=== PATIENT | female | born 2000 | race Caucasian/White ===

== ENCOUNTER 2020-08-28 12:22 | Emergency (ER) | payer OTHER, SELFPAY ==
[2020-08-28 12:27] VITALS: BP 94/61; PULSE 107; RESP 24; TEMP 36.9; O2SAT 98; BMI 18.8
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
--- NOTE | 2020-08-28 12:44 | PC.NURSE ---
Shortly after pt was triaged she was brought back to the ED temporarily while ED bed placement was being established. As this RN returned to the waiting room pt was yelling profanities at the triage nurse, stating that she needs to self-administer her own nebulizer treatment. This RN intervened to inform the pt that we have a room ready for her to transfer to. This was approximately one minute after her triage. As the pt attempted to initiate her own treatment, this RN informed her that she cold not do so in the waiting room due the aerosolizing of the nebulizer and the uncertainty of whether she had covis or not. Pt then walked back to the room assigned to her, continuing to yell out profanities in full clear sentences in no respiratory distress. Upon entering her assigned room pt set her nebulizer up and self administered treatment.
--- NOTE | 2020-08-28 12:48 | XR_ITS ---
EXAMINATION: XR CHEST CLINICAL INFORMATION: Asthma exacerbation. COMPARISON: Chest 10/02/2019 TECHNIQUE: Frontal view of the chest was obtained. FINDINGS: The lungs are well-expanded bilaterally with increase interstitial markings. No gross bony abnormality. XR/XR chest 1V IMPRESSION: No acute process. Increased bilateral interstitial markings in both lungs without acute consolidation.
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
[2020-08-28] MEDS: Albuterol Sulfate (0.083%) 2.5 MG/3 ML VIAL.NEB 5 MG INHALE (13:09)
[2020-08-28 13:10] VITALS: PULSE 84; O2SAT 98
[2020-08-28] MEDS: predniSONE 20 MG TABLET 60 MG PO (13:13)
--- NOTE | 2020-08-28 13:19 | PC.NURSE ---
PT IN ROOM UPDRAFT TREATMENT IN PROGRESS, MEDICATED CHARTED
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
[2020-08-28 14:16] VITALS: BP 116/51; PULSE 101; RESP 16; O2SAT 98
[2020-08-28 14:23] LABS: Influenza A PCR NEGATIVE (Negative); Influenza B PCR NEGATIVE (Negative); Resp Syncy Virus RNA Qual PCR NEGATIVE (Negative); SARS COV2 PCR INHOUSE NEGATIVE (Negative)
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
--- NOTE | 2020-08-28 15:38 | PC.NURSE ---
CARE TEAM PROVIDED PT WITH [facility]. SHE IS ON THE PHONE WITH SOMEONE WHO IS COMING TO GET THIS PT FOR DISCHARGE
== END 2020-08-28 15:55 | disposition home or self-care (01) ==
PROVIDERS: Physician Assistant; Emergency Provider Emergency Medicine
DX: J45.901 Unspecified asthma with (acute) exacerbation (principal); Z20.828 Contact with and (suspected) exposure to other viral communicable diseases
CPT/HCPCS: 0241U; 36415; 71045; 94640; 99283; 99284

== ENCOUNTER 2020-11-18 10:34 | Emergency (ER) | payer OTHER, SELFPAY ==
[2020-11-18 10:46] VITALS: BP 112/49; PULSE 96; RESP 14; TEMP 36.8; O2SAT 84; O2SAT 97; BMI 22.2
--- NOTE | 2020-11-18 11:06 | ECG_ITS ---
Test Reason : SOB Blood Pressure : / mmHG Vent. Rate : 096 BPM Atrial Rate : 096 BPM P-R Int : 126 ms QRS Dur : 082 ms QT Int : 352 ms P-R-T Axes : 077 032 038 degrees QTc Int : 444 ms Normal sinus rhythm Normal ECG When compared with ECG of 29-JUN-2019 09:32, No significant change was found Referred By: Brooklynn Garcia Electronically Signed By:ESTHER ZAMUDIO
--- NOTE | 2020-11-18 11:15 | PC.NURSE ---
PATIENT REFUSING BLOOD WORK, EKG AND ALL TREATMENT. SHE SAID SHE WANTS NOTHING DONE UNLESS HER BOYFRIEND IS IN THE ROOM. WE EXPLAINED TO HER THAT PER HOSPITAL POLICY HE IS NOT ALLOWED IN THE ROOM SINCE COVID-19 HAS NOT YET BEEN RULED OUT A DIAGNOSIS. SHE APPEARS UPSET AND IS NOT ALLOWING US TO DO ANY TEST ON HER.
[2020-11-18 11:45] VITALS: BP 113/44; PULSE 98; RESP 19; O2SAT 100
[2020-11-18 11:59] LABS: MANUAL DIFF FLAG NO
[2020-11-18 12:00] LABS: Basophils Absolute Auto 0.1 X10*3/uL (0.0-0.2); Basophils Percent Auto 0.7 % (0-2); Eosinophils Absolute Auto 0.4 X10*3/uL (0.0-0.4); Eosinophils Percent Auto 3.6 % (0-4); Hemoglobin 13.7 g/dl (12.0-16.0); Imm Gran Abs Auto 0.03 X10*3/uL (0.00-0.03); Imm Gran Pct Auto 0.3 % (0.0-0.4); Lymphocytes Absolute Auto 1.1 X10*3/uL (1.2-4.9); Lymphocytes Percent Auto 10.5 % (20-40); Mean Corpuscular HGB Conc 33.4 g/dl (31.0-35.0); Mean Corpuscular Hemoglobin 30.5 pg (27.0-33.0); Mean Corpuscular Volume 91.3 fL (80-98); Monocytes Absolute Auto 0.5 X10*3/uL (0.1-1.2); Monocytes Percent Auto 4.6 % (2-11); Neutrophils Absolute Auto 8.2 X10*3/uL (2.0-8.3); Neutrophils Percent Auto 80.3 % (45-73); Platelet Count 363 X10*3/uL (160-400); Red Blood Count 4.49 X10*6/uL (4.20-5.50); Red Cell Distribution Width 12.5 % (11.0-16.0); White Blood Count 10.1 X10*3/uL (4.8-10.8)
[2020-11-18] MEDS: 0.9 % Sodium Chloride 1,000 ML 999 ML IVCONT (12:01)
--- NOTE | 2020-11-18 12:06 | ED_ITS ---
HPI - Asthma General Chief Complaint: Asthma Stated Complaint: ASTHMA Time Seen by Provider: 11/18/20 11:03 Source: patient and EMS Mode of arrival: EMS Limitations: no limitations History of Present Illness HPI Narrative: 19-year-old female with a past medical history of asthma who has had multiple intubations an a tracheotomy for breathing assistance although no longer has a tracheotomy at this time presenting to the ED via EMS with complaints of dry cough with shortness of breath and wheezing that started this morning triggered by her seasonal allergies. Reports that on arrival via EMS she received 2 breathing treatments, 125 mg of IV Solu-Medrol and 2 g of magnesium and she reports she feels better. Denies any fevers, dizziness, headaches, sore throat, neck pain/stiffness, palpitations, chest pain, dyspnea on exertion, orthopnea, lower extremity edema, any symptoms or any other symptoms complaints or concerns at this time. Denies recent travel or sick contacts. MD complaint: asthma attack , shortness of breath and wheezing Onset (ago): hour(s) (Prior to arrival) Severity: severe and similar to prior Context: allergen exposure (Seasonal allergies) Associated symptoms: dry cough and other (Chest tightness) Asthma History: childhood onset, history of frequent attacks, history of prior ED visit, previously intubated and followed by specialist Treatments Prior to Arrival: inhaled bronchodilator and inhaled steroid Related Data Current Asthma Therapy: inhaled bronchodilator and inhaled steroid Previous Rx's Medication Instructions Recorded albuterol sulfate 2 puff INHALATION Q6H PRN #18 g 08/28/20 prednisone 40 mg PO DAILY #10 tab 08/28/20 albuterol sulfate 0.63 mg INHALATION QID PRN #75 ml 11/18/20 albuterol sulfate 1 inh INHALATION QID PRN #8.5 g 11/18/20 azithromycin See Rx Instructions .ROUTE 11/18/20 .COMPLEX #6 tab doxycycline monohydrate 100 mg PO BID 10 Days #20 cap 11/18/20 prednisone 60 mg PO DAILY 5 Days #15 tab 11/18/20 Allergies Allergy/AdvReac Type Severity Reaction Status Date / Time Atrovent Allergy Unknown hives Uncoded 11/18/20 10:50 From ATROVENT Allergy Unknown SWELLING Uncoded 11/18/20 10:50 Review of Systems Review of Systems: Constitutional : denies med noncompliance, no history of PE or DVT, denies recent travel, No Fever, No Chills ENT/Mouth : No Hoarseness, No sore throat, No Rhinorrhea Eyes: No Redness, No Discharge, No Vision Changes Cardiovascular : No Chest Pain, + SOB, No Dyspnea on Exertion, No Edema, no pleurisy, Respiratory : + Cough, + Wheezing, No Sputum, no stridor, no hemoptysis, Gastrointestinal : No Nausea, No Vomiting, No Diarrhea, No abdominal Pain Genitourinary : No Dysuria, No Hematuria Musculoskeletal : No joint pain, No Myalgias Extremities: no extremity swelling /pain Skin : No rash, no itching, no swelling Neuro : No Weakness, No Numbness, No Headache Psych : No anxiety, depression Heme/Lymph: No Bruising, No Bleeding Endocrine : No Polyuria, No Polydipsia Yes all other systems are reviewed and are negative [facility] Past Medical History Attestation statement: The following information was validated with the patient. Medical History Asthma Surgical History S/P emergency tracheotomy for assistance in breathing Social History Social History Advance Directives: No Advance Directives Information Provided: No Physical Exam Vital Signs: Vital Signs: Last Vital Signs Temp 98.2 F 11/18/20 10:46 Pulse 96 11/18/20 10:46 Resp 14 11/18/20 10:46 BP 112/49 L 11/18/20 10:46 Pulse Ox 99 11/18/20 13:08 Body Mass Index 22.2 vital signs have been reviewed as normal and appeared to be correct. Blood pressure mildly hypotensive at 112/49. Heart rate normal. Respiration rate normal. Temperature normal. Oxygen saturation normal. Appearance: Alert. Oriented X3. No acute distress. Head: Normal external exam. Normocephalic. Atraumatic. Eyes: PERRLA. EOMI. Conjunctiva and sclera normal. Eyelids normal. ENT: EAC normal. TM's Normal. Pharynx normal. Uvula midline. Moist mucous membranes. No trismus noted. No drooling noted. No muffled voice noted. Neck: Normal inspection. Neck supple. FROM. No adenopathy. Thyroid Normal. No meningeal signs. No neck mass noted. CVS: Normal heart rate and rhythm. Heart sound normal. No murmurs noted. Pulses normal throughout. Respiratory: No respiratory distress. Painless inspiration. Breath sounds normal. No wheezes/rales/rhonchi noted. Chest nontender. No accessory muscle usage noted or decreased air movement noted. Abdomen: Soft and nontender. Bowel sounds normal in all 4 quadrants. No distention noted. No organomegaly noted. No visible injury noted. Back: No CVA tenderness. Full range of motion noted. Skin: Skin warm and dry. Normal skin color. Normal skin turgor. No rashes/lesions/lacerations noted. Extremities: No lower extremity edema. No calf tenderness noted. Extremities exhibit normal range of motion. Extremities nontender. Neuro: Oriented X 3. No motor deficit. No sensory deficit. Reflexes normal. Course Course Course Narrative: 11:06am - 19-year-old female with a past medical history of asthma who has had multiple intubations an a tracheotomy for breathing assistance although no longer has a tracheotomy at this time presenting to the ED via EMS with complaints of dry co ugh with shortness of breath and wheezing that started this morning triggered by her seasonal allergies. Reports that on arrival via EMS she received 2 breathing treatments, 125 mg of IV Solu-Medrol and 2 gm of magnesium and she reports she feels better. - on exam patient is alert and oriented x3. Not in any acute distress. Mildly hypotensive at 112/49 otherwise all other vitals are within normal limits. Pulse ox is 97% on room air. No focal neuro deficits are noted. Patient is neuro intact. Lungs are clear to auscultation. No wheezes/rales or rhonchi or accessory muscle usage noted. No retractions noted. No trismus or drooling noted. Patient tolerating secretions well. - Plan: Labs, COVID/RSV/flu swab, chest x-ray and EKG then a ambulating pulse oximetry. Patient already received Solu-Medrol and magnesium therefore no additional meds indicated at this time will then re-evaluate. Reevaluation(s) Reevaluation #1: - labs reviewed and patient with a carbon dioxide of 21 magnesium was 2.9 otherwise all other labs are within normal limits. COVID/RSV/flu negative. Chest x-ray within normal limits no evidence of pneumonia or any other acute processes. EKG is normal sinus rhythm and circular rate of 96 with a normal LA interval normal QRS duration normal QT/QTC interval. No acute ischemic changes noted. - patient requesting to leave at this time made the nurse take out her IV and already put on her clothes she did not want wait for the UA or the COVID swab although it is back and is negative the UA is still pending. Serum quant was negative. Will DC home with symptomatic treatment struck shins to return if any new or worsening symptoms to follow up with primary care provider. Patient un derstands agrees the plan. Time: 13:15 MDM - Asthma Medical Records Attestation: I reviewed the patient's medical records. Lab Data Attestation: I reviewed the patient's lab results. Result diagrams: 11/18/20 11:54 11/18/20 11:54 Labs: Lab Results 11/18/20 11/18/20 11/18/20 Range/Units 11:53 11:54 11:54 WBC 10.1 (4.8-10.8) X10*3/uL RBC 4.49 (4.20-5.50) X10*6/uL Hgb 13.7 (12.0-16.0) g/dl Hct 41.0 (37-47) % MCV 91.3 (80-98) fL MCH 30.5 (27.0-33.0) pg MCHC 33.4 (31.0-35.0) g/dl RDW 12.5 (11.0-16.0) % Plt Count 363 (160-400) X10*3/uL MPV 9.0 L (9.4-12.3) fL Immature Gran % (Auto) 0.3 (0.0-0.4) % Neut % (Auto) 80.3 H (45-73) % Lymph % (Auto) 10.5 L (20-40) % [place] % (Auto) 4.6 (2-11) % Eos % (Auto) 3.6 (0-4) % Baso % (Auto) 0.7 (0-2) % Lymph # (Auto) 1.1 L (1.2-4.9) X10*3/uL [place] # (Auto) 0.5 (0.1-1.2) X10*3/uL Eos # (Auto) 0.4 (0.0-0.4) X10*3/uL Baso # (Auto) 0.1 (0.0-0.2) X10*3/uL Abs Immat Gran (auto) 0.03 (0.00-0.03) X10*3/uL Absolute Neuts (auto) 8.2 (2.0-8.3) X10*3/uL Absolute Nucleated RBC 0.000 (0.0-0.012) X10*3/uL Nucleated RBC % (auto) 0.0 (0.0-0.2) /100WBC Hold Purple Top PT 12.4 (10.8-13.0) SEC INR 1.0 (0.9-1.1) Sodium (135-145) mmol/L Potassium (3.3-5.1) mmol/L Chloride (96-108) mmol/L Carbon Dioxide (22-29) mmol/L Anion Gap (12-20) BUN (9-16) mg/dL Creatinine (0.5-1.4) mg/dL Estim Creat Clear Calc Estimated GFR Random Glucose (60-115) mg/dL Calcium (8.4-10.2) mg/dL Magnesium (1.6-2.6) mg/dL Total Bilirubin (0.0-1.0) mg/dL Direct Bilirubin (0.0-0.5) mg/dL AST (5-31) U/L ALT (0-31) U/L Alkaline Phosphatase (39-117) U/L Total Protein (6.5-8.0) g/dL Albumin (3.5-5.0) g/dL Beta HCG, Quant mIU/mL Coronavirus (PCR) NEGATIVE (Negative) Influenza Type A (PCR) NEGATIVE (Negative) Influenza Type B (PCR) NEGATIVE (Negative) RSV RNA Qual (PCR) NEGATIVE (Negative) 11/18/20 11/18/20 11/18/20 Range/Units 11:54 11:54 11:54 WBC (4.8-10.8) X10*3/uL RBC (4.20-5.50) X10*6/uL Hgb (12.0-16.0) g/dl Hct (37-47) % MCV (80-98) fL MCH (27.0-33.0) pg MCHC (31.0-35.0) g/dl RDW (11.0-16.0) % Plt Count (160-400) X10*3/uL MPV (9.4-12.3) fL Immature Gran % (Auto) (0.0-0.4) % Neut % (Auto) (45-73) % Lymph % (Auto) (20-40) % [place] % (Auto) (2-11) % Eos % (Auto) (0-4) % Baso % (Auto) (0-2) % Lymph # (Auto) (1.2-4.9) X10*3/uL [place] # (Auto) (0.1-1.2) X10*3/uL Eos # (Auto) (0.0-0.4) X10*3/uL Baso # (Auto) (0.0-0.2) X10*3/uL Abs Immat Gran (auto) (0.00-0.03) X10*3/uL Absolute Neuts (auto) (2.0-8.3) X10*3/uL Absolute Nucleated RBC (0.0-0.012) X10*3/uL Nucleated RBC % (auto) (0.0-0.2) /100WBC Hold Purple Top SEE NOTE PT (10.8-13.0) SEC INR (0.9-1.1) Sodium 139 (135-145) mmol/L Potassium 3.7 (3.3-5.1) mmol/L Chloride 107 (96-108) mmol/L Carbon Dioxide 21 L (22-29) mmol/L Anion Gap 15 (12-20) BUN 9 (9-16) mg/dL Creatinine 1.07 (0.5-1.4) mg/dL Estim Creat Clear Calc 79.1 Estimated GFR > 60 Random Glucose 104 (60-115) mg/dL Calcium 8.9 (8.4-10.2) mg/dL Magnesium 2.9 H (1.6-2.6) mg/dL Total Bilirubin 0.8 (0.0-1.0) mg/dL Direct Bilirubin 0.3 (0.0-0.5) mg/dL AST 16 (5-31) U/L ALT 13 (0-31) U/L Alkaline Phosphatase 64 (39-117) U/L Total Protein 6.8 (6.5-8.0) g/dL Albumin 4.3 (3.5-5.0) g/dL Beta HCG, Quant < 2 mIU/mL Coronavirus (PCR) (Negative) Influenza Type A (PCR) (Negative) Influenza Type B (PCR) (Negative) RSV RNA Qual (PCR) (Negative) Imaging Data Chest x-ray: Attestation: I personally reviewed and interpreted this imaging study as follows: Radiologist's impression: FINDINGS: The lungs are well-expanded bilaterally with increase interstitial markings. No gross bony abnormality. XR/XR chest 1V IMPRESSION: No acute process. Increased bilateral interstitial markings in both lungs without acute consolidation. ECG Data Attestation: I personally reviewed and interpreted this ECG as follows: ECG interpretation date: 11/18/20 ECG interpretation time: 11:47 Interpretation: Normal sinus rhythm with a ventricular rate of 96 with a normal LA interval normal QRS duration normal QT/QTC interval. No acute ischemic changes noted. Similar compared to prior EKG 06/29/2019. Critical Care Time Critical Care Time Critical Care Time: Yes Total Critical Care Time: 60 Attestation: I personally attest to this time spent taking care of the patient Discharge Plan Discharge Clinical Impression: Asthma, Asthma with acute exacerbation, Wheezing Patient Disposition: Home, Self-Care Instructions: Asthma (ED), Bronchospasm (ED) Additional Instructions: Based on your symptoms and history we have sent a COVID-19. Although your RESULT IS PENDING at this time. RESULTS should return within 2-4 hours. At this time you will be contacted with either NEGATIVE OR POSITIVE results. -Please wait until we contact you for your results. At this time you will be okay for discharge. Please plan for self quarantine for up to 14 days. Do not expose yourself to others. You may not go to work. If testing does come back negative you may return to activities as long as you are no longer having any symptoms for at least 3 days. Please continue to follow cold instructions and wash your hands frequently. You may take Tylenol as directed on the bottle for pain or fever. Patient seen in the emergency department on 11/18/2020 and should be excused from work until negative test results AND until 72 hours without any symptoms AND at least 10 days have passed since symptoms first appeared or since last exposure to COVID-19 positive patient CDC Guidelines for home isolation: - Stay away from others - WEAR A MASK if you are sick AND STAY HOME - Cover your mouth and nose with a tissue when you cough or sneeze. Dispose of tissues in a lined trash can and wash your hands immediately with soap and water for at least 20 seconds. If soap and water are not available, clean hands with a lcohol-based hand business control specialist that contains at least 60% alcohol. - Clean your hands often with soap and water for at least 20 seconds - Avoid touching your eyes, nose and mouth with unwashed hands - Do not share dishes, drinking glasses, cups, eating utensils, towels, or bedding with other people in your home. After using these items, wash them thoroughly with soap and water or put in the veneer marker. - Clean high-touch surfaces in your isolation area ( sick room and bathroom) every day; let a caregiver clean and disinfect high-touch surfaces in other areas of the home. Clean the area or item with soap and water or another detergent if it is dirty. Then, use a household disinfectant. - Limit contact with pets and animals: If you must care for a pet, wash your hands before and after interacting with them). Prescriptions: New albuterol sulfate 0.63 mg/3 mL solution for nebulization 0.63 mg inhalation QID PRN (Reason: shortness of breath or wheezing) Qty: 75 RF: 0 azithromycin 250 mg tablet See Rx Instructions .ROUTE .COMPLEX Qty: 6 RF: 0 prednisone 20 mg tablet 60 mg PO DAILY 5 Days Qty: 15 RF: 0 doxycycline monohydrate 100 mg capsule 100 mg PO BID 10 Days Qty: 20 RF: 0 albuterol sulfate 90 mcg/actuation HFA aerosol inhaler 1 inh inhalation QID PRN (Reason: shortness of breath or wheezing) Qty: 8.5 RF: 0 No Action prednisone 20 mg tablet 40 mg PO DAILY Qty: 10 RF: 0 albuterol sulfate 90 mcg/actuation HFA aerosol inhaler 2 puff inhalation Q6H PRN (Reason: asthma) Qty: 18 RF: 0 Referrals: Norah Carr MD [Primary Care Provider] - 2 days Stand Alone Forms: Work/School Release Print Language: Citizen Of [place]
[2020-11-18 12:13] LABS: Prothrombin Time 12.4 SEC (10.8-13.0)
[2020-11-18 12:31] LABS: Alanine Aminotransferase 13 U/L (0-31); Albumin Level 4.3 g/dL (3.5-5.0); Alkaline Phosphatase 64 U/L (39-117); Anion Gap 15 (12-20); Aspartate Amino Transferase 16 U/L (5-31); Bilirubin Direct 0.3 mg/dL (0.0-0.5); Bilirubin Total 0.8 mg/dL (0.0-1.0); Blood Urea Nitrogen 9 mg/dL (9-16); Calcium 8.9 mg/dL (8.4-10.2); Carbon Dioxide 21 mmol/L (22-29); Chloride 107 mmol/L (96-108); Creatinine Clr Calc Pharmacy 79.1; Estimated Glomerular Filt Rate > 60; Glucose Random 104 mg/dL (60-115); Magnesium 2.9 mg/dL (1.6-2.6); Potassium 3.7 mmol/L (3.3-5.1); Sodium 139 mmol/L (135-145); Total Protein 6.8 g/dL (6.5-8.0)
[2020-11-18 12:34] LABS: HCG Quantitative < 2 mIU/mL
[2020-11-18 13:05] LABS: Influenza A PCR NEGATIVE (Negative); Influenza B PCR NEGATIVE (Negative); Resp Syncy Virus RNA Qual PCR NEGATIVE (Negative); SARS COV2 PCR INHOUSE NEGATIVE (Negative)
[2020-11-18 13:08] VITALS: O2SAT 99
--- NOTE | 2020-11-18 13:20 | PC.NURSE ---
Pt asking for discharge. 100% on RA. 99% on RA while ambulating. She states that she feels much better than when she came in. Scripts sent to pharm and reviewed with pt at time of dc.
[2020-11-18 13:21] LABS: Glucose Urine UA NEG (NEG); Leukocyte Esterase Urine 1+ (NEG); Nitrite Urine POS (NEG); PH 6.5 (5.0-8.0); Specific Gravity - Urine 1.015 (1.005-1.025); UACC Culture Trigger YES; Urine Blood NEG (NEG); Urine Ketones NEG (NEG); Urine Protein NEG (NEG-TRACE)
[2020-11-18 13:30] LABS: Appearance Urine CLOUDY; Color Urine YELLOW
[2020-11-18 13:36] LABS: Bacteria Urine 3+ /LPF; RBC Urine 0-2 /HPF (0); Squamous Epithelial Cell Urine 2+ /LPF
== END 2020-11-18 13:22 | disposition home or self-care (01) ==
PROVIDERS: Physician Assistant Medical; Emergency Provider Emergency Medicine; PCP Pediatrics
DX: J45.901 Unspecified asthma with (acute) exacerbation (principal); Z79.899 Other long term (current) drug therapy; Z20.822 Contact with and (suspected) exposure to COVID-19
CPT/HCPCS: 0241U; 36415; 80048; 80076; 81001; 81003; 83735; 84702; 85025; 85610; 87086; 87088; 87186; 93005; 96361; 96365; 96375; 99283; 99284; 99285

== ENCOUNTER 2021-01-31 16:38 | Emergency (ER) | payer OTHER, SELFPAY | END 2021-01-31 19:07 | disposition left against medical advice (07) | PROVIDERS: Emergency Provider Emergency Medicine; PCP Pediatrics | DX: R42 Dizziness and giddiness (principal); R60.9 Edema, unspecified ==

== ENCOUNTER 2021-03-23 10:26 | Emergency (ER) | payer OTHER, SELFPAY ==
--- NOTE | ~2021-03-23 | XR_ITS ---
EXAMINATION: XR CHEST CLINICAL INFORMATION: Chest pain COMPARISON: 08/28/2020 TECHNIQUE: Frontal view of the chest was obtained. FINDINGS: Lungs are well-inflated and clear. Trachea is midline in position. No interstitial disease, consolidation or mass. No pulmonary edema, pleural effusion or pneumothorax. Cardiac silhouette and pulmonary vessels are normal in size. The mediastinum and junior have normal contour. The visualized bones, and upper abdomen, are unremarkable. XR/XR chest 1V IMPRESSION: Normal chest. No acute cardiopulmonary abnormality.
[2021-03-23 10:30] VITALS: BP 104/59; PULSE 99; RESP 14; TEMP 36.7; O2SAT 99; BMI 18.8
--- NOTE | 2021-03-23 10:37 | ED.CHESTPAIN ---
HPI - Chest Pain General Chief Complaint: Chest Pain Stated Complaint: chest pain Time Seen by Provider: 03/23/21 10:32 Source: patient Mode of arrival: ambulatory Limitations: no limitations History of Present Illness HPI narrative: no OCPs MD complaint: chest pain Pertinent past history: asthma Onset (ago): week(s) (1) Timing of current episode: constant Prior episodes: No Onset: during rest Pain location: left chest Pain radiation: none Severity: moderate Quality: sharp Relieving factors: nothing Exacerbating factors: palpation, movement and other (coughing) Associated symptoms: dyspnea Treatment prior to arrival: none Related Data Previous Rx's Medication Instructions Recorded albuterol sulfate 90 mcg/actuation 2 puff INHALATION Q6H PRN #18 g 08/28/20 aerosol inhaler prednisone 20 mg tablet 40 mg PO DAILY #10 tab 08/28/20 albuterol sulfate 0.63 mg/3 mL 0.63 mg INHALATION QID PRN #75 ml 11/18/20 solution for nebulization albuterol sulfate 90 mcg/actuation 1 inh INHALATION QID PRN #8.5 g 11/18/20 aerosol inhaler azithromycin 250 mg tablet See Rx Instructions .ROUTE 11/18/20 .COMPLEX #6 tab doxycycline monohydrate 100 mg 100 mg PO BID 10 Days #20 cap 11/18/20 capsule prednisone 20 mg tablet 60 mg PO DAILY 5 Days #15 tab 11/18/20 cyclobenzaprine 10 mg tablet 10 mg PO TID PRN #14 tab 03/23/21 ibuprofen 600 mg tablet 600 mg PO Q6H PRN #30 tab 03/23/21 lidocaine 4 % topical patch 1 patch TOPICAL DAILY PRN #10 ea 03/23/21 Allergies Allergy/AdvReac Type Severity Reaction Status Date / Time Atrovent Allergy Unknown hives Uncoded 11/18/20 10:50 From ATROVENT Allergy Unknown SWELLING Uncoded 11/18/20 10:50 Review of Systems Review of Systems: Constitutional : No Weight loss, No Fever, No Chills ENT/Mouth : No sore throat, No Rhinorrhea Eyes: No Eye Pain, No Swelling Cardiovascular : pos Chest Pain, pos SOB, no Dyspnea on Exertion, No Orthopnea, No Edema, No Palpitations Respiratory : No Cough, No Sputum Gastrointestinal : no Nausea, No Vomiting, No Diarrhea, No abdominal Pain, No Hematochezia, No Melena Genitourinary : No Dysuria, No Urinary Frequency Musculoskeletal : No joint pain, No Myalgias, No Joint Swelling Skin : No Skin Lesions, No rash Neuro : No Weakness, No Numbness, No Dizziness, No Headache Psych : No Anxiety/Panic, No Depression Heme/Lymph: No Bruising, No Lymphadenopathy Endocrine : No Polyuria, No Polydipsia All other systems reviewed and are negative [facility] Past Medical History Attestation statement: The following information was validated with the patient. Medical History Asthma Surgical History S/P emergency tracheotomy for assistance in breathing Social History Social History Patient Tobacco Use Status: Never used Tobacco Use of substances other than those prescribed or required for medical reasons: No Advance Directives: Yes Advance Directives Information Provided: Yes Advance Directives on File: No Patient : No Physical Exam Vital Signs: Vital Signs: Last Vital Signs Temp 98.1 F 03/23/21 10:30 Pulse 99 03/23/21 11:13 Resp 18 03/23/21 11:13 BP 104/59 L 03/23/21 10:30 Pulse Ox 100 03/23/21 11:13 Body Mass Index 18.8 Appearance: Alert. Oriented X3. No acute distress. Eyes: Pupils equal, round and reactive to light. ENT: Pharynx normal. Neck: Normal inspection. Neck supple. CVS: Normal heart rate and rhythm. Pulses normal. Chest: ttp along L costochondral border that reproduces the pain Respiratory: No respiratory distress. Breath sounds normal. Abdomen: Soft and nontender. Skin: Skin warm and dry. Normal skin color. Normal skin turgor. Extremities: No lower extremity edema. No calf ttp Neuro: Oriented X 3. No motor deficit. No sensory deficit. Course Course Course Narrative: negative xray, neg troponin, nonischemic EKG, stable for DC at this time MDM - Chest Pain MDM Narrative Medical decision making narrative: 20 yo female with asthma comes in with c/o L sided chest wall pain no trauma, PERC negative, lungs are clear, has no ACS risk factors, seems MSK in nature, will obtain EKG, labs, troponin x 1, CXR dispo per results and findings. Lab Data Result diagrams: 03/23/21 11:19 03/23/21 11:19 Labs: Lab Results 03/23/21 03/23/21 03/23/21 Range/Units 11:19 11:19 11:19 WBC 13.1 H (4.8-10.8) X10*3/uL RBC 4.17 L (4.20-5.50) X10*6/uL Hgb 12.8 (12.0-16.0) g/dl Hct 37.6 (37-47) % MCV 90.2 (80-98) fL MCH 30.7 (27.0-33.0) pg MCHC 34.0 (31.0-35.0) g/dl RDW 12.4 (11.0-16.0) % Plt Count 353 (160-400) X10*3/uL MPV 9.1 L (9.4-12.3) fL Immature Gran % (Auto) 0.4 (0.0-0.4) % Neut % (Auto) 71.0 (45-73) % Lymph % (Auto) 15.4 L (20-40) % [place] % (Auto) 7.3 (2-11) % Eos % (Auto) 5.3 H (0-4) % Baso % (Auto) 0.6 (0-2) % Lymph # (Auto) 2.0 (1.2-4.9) X10*3/uL [place] # (Auto) 1.0 (0.1-1.2) X10*3/uL Eos # (Auto) 0.7 H (0.0-0.4) X10*3/uL Baso # (Auto) 0.1 (0.0-0.2) X10*3/uL Abs Immat Gran (auto) 0.05 H (0.00-0.03) X10*3/uL Absolute Neuts (auto) 9.3 H (2.0-8.3) X10*3/uL Absolute Nucleated RBC 0.000 (0.0-0.012) X10*3/uL Nucleated RBC % (auto) 0.0 (0.0-0.2) /100WBC Sodium 141 (135-145) mmol/L Potassium 3.6 (3.3-5.1) mmol/L Chloride 109 H (96-108) mmol/L Carbon Dioxide 25 (22-29) mmol/L Anion Gap 11 L (12-20) BUN 10 (9-16) mg/dL Creatinine 0.97 (0.5-1.4) mg/dL Estim Creat Clear Calc 79.5 Estimated GFR > 60 Random Glucose 77 (60-115) mg/dL Calcium 9.1 (8.4-10.2) mg/dL Total Bilirubin 0.3 (0.0-1.0) mg/dL Direct Bilirubin < 0.2 (0.0-0.5) mg/dL AST 12 (5-31) U/L ALT 9 (0-31) U/L Alkaline Phosphatase 59 (39-117) U/L Troponin I High Sens < 3.5 (<3.5-17.0) ng/L Total Protein 6.2 L (6.5-8.0) g/dL Albumin 3.9 (3.5-5.0) g/dL ECG Data ECG #1: Attestation: I personally reviewed and interpreted this ECG as follows: ECG interpretation date: 03/23/21 ECG interpretation time: 11:00 Interpretation: Rate: 90 Rhythm:NSR [place]: normal Normal P waves. Normal FRANCINE. Normal QRS complex. ST T wave : normal no SHAD qTC: normal prior studies: no acute ischemia The study has been interpreted contemporaneously by me. . Discharge Plan Discharge Clinical Impression: Acute costochondritis Patient Disposition: Home, Self-Care Instructions: Costochondritis (ED) Additional Instructions: return to ED for any worsening symptoms or concerns Prescriptions: New cyclobenzaprine 10 mg tablet 10 mg PO TID PRN (Reason: muscle spasm) Qty: 14 RF: 0 ibuprofen 600 mg tablet 600 mg PO Q6H PRN (Reason: pain) Qty: 30 RF: 0 lidocaine 4 % adhesive patch,medicated 1 patch topical DAILY PRN (Reason: pain) Qty: 10 RF: 0 No Action prednisone 20 mg tablet 40 mg PO DAILY Qty: 10 RF: 0 albuterol sulfate 90 mcg/actuation HFA aerosol inhaler 2 puff inhalation Q6H PRN (Reason: asthma) Qty: 18 RF: 0 albuterol sulfate 0.63 mg/3 mL solution for nebulization 0.63 mg inhalation QID PRN (Reason: shortness of breath or wheezing) Qty: 75 RF: 0 azithromycin 250 mg tablet See Rx Instructions .ROUTE .COMPLEX Qty: 6 RF: 0 prednisone 20 mg tablet 60 mg PO DAILY 5 Days Qty: 15 RF: 0 doxycycline monohydrate 100 mg capsule 100 mg PO BID 10 Days Qty: 20 RF: 0 albuterol sulfate 90 mcg/actuation HFA aerosol inhaler 1 inh inhalation QID PRN (Reason: shortness of breath or wheezing) Qty: 8.5 RF: 0 Referrals: Norah Carr MD [Primary Care Provider] - 3 days (if not better)
--- NOTE | 2021-03-23 10:51 | ECG_ITS ---
Test Reason : CP Blood Pressure : / mmHG Vent. Rate : 090 BPM Atrial Rate : 090 BPM P-R Int : 130 ms QRS Dur : 076 ms QT Int : 340 ms P-R-T Axes : 082 062 063 degrees QTc Int : 415 ms Normal sinus rhythm Normal ECG When compared with ECG of 18-NOV-2020 11:47, No significant change was found Referred By: Ailyn Hair Electronically Signed By:ESTHER ZAMUDIO
[2021-03-23 11:13] VITALS: PULSE 99; RESP 18; O2SAT 100
[2021-03-23] MEDS: Ketorolac Tromethamine 15 MG/ML VIAL IVPUSH (11:25)
[2021-03-23] MEDS: Cyclobenzaprine HCl 5 MG TABLET PO (11:25)
[2021-03-23 11:27] LABS: MANUAL DIFF FLAG NO
--- NOTE | 2021-03-23 11:28 | PC.NURSE ---
pt alert and oriented, skin appropriate for ethnicity, respirations even and unlabored, ls clear. pt reports left sided chest pain for one week, worse with movement/deep inspirations/
[2021-03-23 11:30] LABS: Basophils Absolute Auto 0.1 X10*3/uL (0.0-0.2); Basophils Percent Auto 0.6 % (0-2); Eosinophils Absolute Auto 0.7 X10*3/uL (0.0-0.4); Eosinophils Percent Auto 5.3 % (0-4); Hematocrit 37.6 % (37-47); Hemoglobin 12.8 g/dl (12.0-16.0); Imm Gran Abs Auto 0.05 X10*3/uL (0.00-0.03); Imm Gran Pct Auto 0.4 % (0.0-0.4); Lymphocytes Percent Auto 15.4 % (20-40); Mean Corpuscular Hemoglobin 30.7 pg (27.0-33.0); Mean Corpuscular Volume 90.2 fL (80-98); Mean Platelet Volume 9.1 fL (9.4-12.3); Monocytes Percent Auto 7.3 % (2-11); Neutrophils Absolute Auto 9.3 X10*3/uL (2.0-8.3); Platelet Count 353 X10*3/uL (160-400); Red Blood Count 4.17 X10*6/uL (4.20-5.50); Red Cell Distribution Width 12.4 % (11.0-16.0); White Blood Count 13.1 X10*3/uL (4.8-10.8)
[2021-03-23 11:54] LABS: Alanine Aminotransferase 9 U/L (0-31); Albumin Level 3.9 g/dL (3.5-5.0); Alkaline Phosphatase 59 U/L (39-117); Anion Gap 11 (12-20); Aspartate Amino Transferase 12 U/L (5-31); Bilirubin Direct < 0.2 mg/dL (0.0-0.5); Bilirubin Total 0.3 mg/dL (0.0-1.0); Blood Urea Nitrogen 10 mg/dL (9-16); Calcium 9.1 mg/dL (8.4-10.2); Carbon Dioxide 25 mmol/L (22-29); Chloride 109 mmol/L (96-108); Creatinine Clr Calc Pharmacy 79.5; Estimated Glomerular Filt Rate > 60; Glucose Random 77 mg/dL (60-115); Potassium 3.6 mmol/L (3.3-5.1); Sodium 141 mmol/L (135-145); Total Protein 6.2 g/dL (6.5-8.0)
[2021-03-23 11:56] LABS: Troponin-I High Sensitivity < 3.5 ng/L (<3.5-17.0)
--- NOTE | 2021-03-23 12:16 | PC.NURSE ---
pt reports feeling a little better after the medication, pain at 5/10
[2021-03-23] MEDS: Lidocaine 4 % Patch ADH..PATCH 1 PATCH TRANSDERMA (12:17)
== END 2021-03-23 12:21 | disposition home or self-care (01) ==
PROVIDERS: Emergency Provider Emergency Medicine; PCP Pediatrics
DX: M94.0 Chondrocostal junction syndrome [Tietze] (principal)
CPT/HCPCS: 36415; 71045; 80048; 80076; 84484; 85025; 93005; 96374; 99284; J1885

== ENCOUNTER 2021-08-19 13:27 | Emergency (ER) | payer OTHER, SELFPAY ==
[2021-08-19 15:15] VITALS: BP 112/60; PULSE 94; RESP 18; TEMP 37; O2SAT 99
== END 2021-08-19 19:02 | disposition left against medical advice (07) ==
PROVIDERS: Emergency Provider Emergency Medicine
DX: J02.9 Acute pharyngitis, unspecified (principal); H92.09 Otalgia, unspecified ear

== ENCOUNTER 2022-02-09 20:40 | Emergency (ER) | payer OTHER, SELFPAY ==
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
--- NOTE | ~2022-02-09 | CT_ITS ---
EXAMINATION: CT CHEST WITH CONTRAST CLINICAL INFORMATION: Anterior chest wall pain, shortness of breath COMPARISON: Radiograph 03/23/2021 TECHNIQUE: Multidetector volumetric CT imaging of the chest was obtained after the administration of 50 mL of Omnipaque 350 intravenous contrast without immediate adverse reactions. Axial MIP volume rendering provided. Sagittal and coronal reformatted images were obtained. This CT examination was performed using dose optimization techniques as appropriate, variously including the following: *Automated exposure control *Adjustment of mA and/or kV according to patient size (this includes techniques or standardized protocols for targeted exams where dose is matched to indication/reason for exam; i.e. extremities or head) *Use of iterative reconstruction technique DLP: 161 mGy-cm FINDINGS: BLEACHER PULP: Within normal limits LUNGS: The lungs are clear with no evidence of inflammation or nodules. MEDIASTINUM: The mediastinum is normal. PLEURA: There is no pleural effusion. No pleural mass or thickening. AXILLA: No lymphadenopathy. UPPER ABDOMEN: Unremarkable OSSEOUS STRUCTURES: Unremarkable. CT/CT chest w con IMPRESSION: Unremarkable examination. Fleischner guidelines were followed.
[2022-02-09 20:49] VITALS: BP 144/114; PULSE 130; RESP 24; O2SAT 97; BMI 21.0
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
[2022-02-09 21:15] LABS: Basophils Absolute Auto 0.1 X10*3/uL (0.0-0.2); Basophils Percent Auto 0.3 % (0-2); Eosinophils Percent Auto 0.1 % (0-4); Hematocrit 41.5 % (37.0-47.0); Hemoglobin 13.9 g/dl (12.0-16.0); Imm Gran Abs Auto 0.19 X10*3/uL (0.00-0.03); Lymphocytes Absolute Auto 0.6 X10*3/uL (1.2-4.9); MANUAL DIFF FLAG SCAN; Mean Corpuscular HGB Conc 33.5 g/dl (31.0-35.0); Mean Corpuscular Hemoglobin 30.4 pg (27.0-33.0); Mean Corpuscular Volume 90.8 fL (80.0-98.0); Mean Platelet Volume 8.8 fL (9.4-12.3); Monocytes Absolute Auto 0.3 X10*3/uL (0.1-1.2); Monocytes Percent Auto 1.7 % (2-11); Neutrophils Absolute Auto 17.3 x10*3/uL (2.0-8.3); Neutrophils Percent Auto 93.9 % (45-73); Platelet Count 404 X10*3/uL (160-400); Red Blood Count 4.57 X10*6/uL (4.20-5.50); Red Cell Distribution Width 12.3 % (11.0-16.0); SCAN SMEAR FLAG 1; White Blood Count 18.4 X10*3/uL (4.8-10.8)
--- NOTE | 2022-02-09 21:15 | PC.NURSE ---
patient a&ox3, vitals currently stable, patient initially was anxious/hyperventilating, she is calm and now speaking in full sentences, ivs placed bilateral acs, labs drawn, neck brace placed, [place] in to speak with patient. pt awaiting imagining.
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
[2022-02-09] MEDS: Morphine Sulfate 4 MG/ML CARTRIDGE IVPUSH (21:33)
[2022-02-09 21:35] LABS: SLIDE REVIEW VERIFIED
--- NOTE | 2022-02-09 21:39 | PC.NURSE ---
pt medicated per order
[2022-02-09 22:00] VITALS: BP 123/69; PULSE 102; RESP 18; O2SAT 99
[2022-02-09 22:24] LABS: Alanine Aminotransferase 13 U/L (0-31); Albumin Level 4.6 g/dL (3.5-5.0); Alkaline Phosphatase 70 U/L (39-117); Anion Gap 23 (12-20); Aspartate Amino Transferase 20 U/L (5-31); Bilirubin Total 0.4 mg/dL (0.0-1.0); Blood Urea Nitrogen 10 mg/dL (9-16); Calcium 9.4 mg/dL (8.4-10.2); Carbon Dioxide 13 mmol/L (22-29); Chloride 107 mmol/L (96-108); Creatinine Clr Calc Pharmacy 57.2; Estimated Glomerular Filt Rate 55; Glucose Random 100 mg/dL (60-115); Magnesium 2.6 mg/dL (1.6-2.6); Sodium 139 mmol/L (135-145); Total Protein 7.2 g/dL (6.5-8.0)
[2022-02-09 22:35] LABS: HCG Quantitative < 2 mIU/mL
--- NOTE | 2022-02-09 22:44 | PC.NURSE ---
pt to ct scan, vss, pt speaking in full sentences, will continue to monitor
[2022-02-09] MEDS: iohexoL 350 MG/ML 100 ML INFUS..BTL 85 ML IV (23:03)
[2022-02-09 23:04] VITALS: BP 118/63; PULSE 101; RESP 19; O2SAT 100
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
== END 2022-02-09 23:00 | disposition home or self-care (01) ==
PROVIDERS: Physician Assistant; Emergency Provider Internal Medicine; PCP Pediatrics
DX: S00.212A Abrasion of left eyelid and periocular area, initial encounter (principal); S00.81XA Abrasion of other part of head, initial encounter; G44.309 Post-traumatic headache, unspecified, not intractable; M54.6 Pain in thoracic spine; M54.2 Cervicalgia; M25.552 Pain in left hip; M25.551 Pain in right hip; F12.90 Cannabis use, unspecified, uncomplicated; V03.90XA Pedestrian on foot injured in collision with car, pick-up truck or van, unspecified whether traffic or nontraffic accident, initial encounter; Y93.9 Activity, unspecified; Y92.410 Unspecified street and highway as the place of occurrence of the external cause; Y99.9 Unspecified external cause status; Z79.899 Other long term (current) drug therapy
CPT/HCPCS: 70450; 71260; 72125; 74177; 80053; 83735; 84702; 85025; 96374; 99284; J2270; Q9967

== ENCOUNTER 2022-05-12 17:12 | Emergency (ER) | payer OTHER, SELFPAY ==
[2022-05-12 17:24] VITALS: BP 111/62; PULSE 90; RESP 16; TEMP 36.8; O2SAT 99; BMI 21.8
[2022-05-12 19:56] VITALS: RESP 18
--- NOTE | 2022-05-12 21:14 | ED_ITS ---
HPI - General Adult General Chief complaint: Eye Problems Stated complaint: conjunctivitis Time Seen by Provider: 05/12/22 21:02 Source: patient Mode of arrival: ambulatory Limitations: no limitations History of Present Illness HPI narrative: 21-year-old female presents to ED for bilateral eye redness with yellow d ischarge and itchiness for the past 11 days. Patient states no improvement with olantandaine eye drops and arithromycin oral antibiotic. patient was given polymyxin eye drop 11 days ago with no improvement. Patient denies any glasses wearing, contact wearer, trauma to the eye, genital fluids in the eye, headache, dizziness, neck pain, fever, chills, rash, or loss of vision. Patient had fluorescein dye test done twice under wood's lamp with most recent test done yesterday at urgent care which was negative for corneal abrasion, corneal ulcers, or other eye abrnormlaities as per report brought by david from urgent care. Most recent wood's lamp test was yesterday. Related Data Previous Rx's Medication Instructions Recorded albuterol sulfate 90 mcg/actuation 2 puff inhalation Q6H PRN asthma 08/28/20 aerosol inhaler #18 grams prednisone 20 mg tablet 40 mg PO DAILY asthma #10 tabs 08/28/20 albuterol sulfate 0.63 mg/3 mL 0.63 mg (3 mL) inhalation QID PRN 11/18/20 solution for nebulization shortness of breath or wheezing #75 mL albuterol sulfate 90 mcg/actuation 1 inh inhalation QID PRN shortness 11/18/20 aerosol inhaler of breath or wheezing #8.5 grams azithromycin 250 mg tablet See Rx Instructions PO .COMPLEX #6 11/18/20 tabs doxycycline monohydrate 100 mg 100 mg PO BID 10 days #20 caps 11/18/20 capsule prednisone 20 mg tablet 60 mg PO DAILY rash 5 days #15 tabs 11/18/20 cyclobenzaprine 10 mg tablet 10 mg PO TID PRN muscle spasm #14 03/23/21 tabs ibuprofen 600 mg tablet 600 mg PO Q6H PRN pain #30 tabs 03/23/21 lidocaine 4 % topical patch 1 patch topical DAILY PRN pain #10 03/23/21 ea erythromycin 5 mg/gram (0.5 %) eye 0.5 inch ophthalmic (eye) QID 7 05/12/22 ointment days #3.5 grams Allergies Allergy/AdvReac Type Severity Reaction Status Date / Time Atrovent Allergy Unknown hives Uncoded 11/18/20 10:50 From ATROVENT Allergy Unknown SWELLING Uncoded 11/18/20 10:50 Review of Systems Review of Systems: bilateral eye redness with eye discharge Yes all other systems are reviewed and are negative [facility] Past Medical History Medical History (Updated 05/12/22 @ 22:14 by JESSI Wilson) Asthma Surgical History S/P emergency tracheotomy for assistance in breathing Social History Social History Alcohol intake: current Alcohol intake frequency: holidays/special occasions only Patient Tobacco Use Status: Never used Tobacco Substance Use Type: Marijuana Advance Directives: No Advance Directives Information Provided: No Physical Exam ED Vital Signs: Vital Signs - 24 hr 05/12/22 17:24 05/12/22 19:56 Temperature 98.2 F Pulse Rate 90 Respiratory Rate 16 18 Blood Pressure 111/62 Pulse Oximetry 99 Oxygen Delivery Method Room Air BMI result Body Mass Index 21.8 Const General: cooperative, healthy appearing, comfortable, no acute distress, well developed, alert and awake Orientation/consciousness: patient oriented x3 HENMT Head: Yes normal to inspection, Yes No palpable skull fracture present, Yes normocephalic, Yes atraumatic and No abrasion Ears: hearing grossly normal bilaterally, external ears normal, TM's normal bilaterally, TM normal on the right, TM normal on the left, EAC's normal, mastoids normal and no periauricular adenopathy General nose exam: Normal external nose present and Normal nares present Eyes Other: To number treat pressure for 2 each eye was evaluated was normal. Right eye was 8. Left eye was 9. Visual acuity in both eye is 20/30. Neck Neck: Yes normal visual inspection, Yes full ROM, Yes no lymphadenopathy, Yes no meningeal signs, Yes trachea midline, Yes supple, No anterior neck swelling and No tender Chest Chest palpation & inspection: normal inspection of the chest and normal p alpation of entire chest wall Resp Effort & Inspection: normal respiratory effort and able to speak in complete sentences Auscultation: clear to auscultation bilaterally Cardio Jugular venous distension: no JVD Heart sounds: S1 normal heart sound present and S2 normal heart sound present GI Inspection: Yes normal to inspection and No abdominal wall ecchymosis Palpation (GI): Soft to palpation, not firm, nontender, no guarding and not rigid General: No CVA tenderness and Yes no CVA tenderness Back/Spine/Pelvis Back: no CVA tenderness, No CVA tenderness, No ecchymosis and No back tenderness Skin General skin exam: no rashes or lesions noted and elasticity normal Neuro General: patient oriented x3, gait normal, tone normal and no meningeal signs Cranial nerves: Yes CN's II-XII intact bilaterally Extrem General: Yes normal to inspection and Yes full ROM Psych Appearance: grossly normal, well kempt and not disheveled Course Course Course Narrative: Patient in any distress. Reevaluation(s) Reevaluation #1: No need for repeat mood lamp test with fluorescein dye. Patient had 2 that were done were negative with most recent last night. History physically and does not indicate glaucoma or temporal arteritis. History physical exam does not indicate orbital cellulitis or globe rupture. Unlikely episcleritis or scleritis but patient informed to follow-up with Dr. Freedman. Patient pr egnant so she could only take Tylenol. Discharge with erythromycin. Vigamox has potential exposure to fetus as per uptodate. Time: 22:07 Medical Decision Making MDM Narrative Medical decision making narrative: Bilateral conjunctivitis Discharge Plan Discharge Clinical Impression: Acute bacterial conjunctivitis of both eyes Patient Disposition: Home, Self-Care Instructions: Conjunctivitis (ED) Additional Instructions: Please call Dr. Freedman of opthomalogy for follow up appointment. Return to the ED immediately for any change in vision, loss of vision, worsening eye pain, worsening eye discharge, headache, dizziness, fever, chills, or any other concerning symptoms. Since you are only Tylenol safe for pain Prescriptions: New erythromycin 5 mg/gram (0.5 %) ointment 0.5 inch ophthalmic (eye) QID 7 Days Qty: 3.5 0RF Rx Instructions: Both eyes No Action cyclobenzaprine 10 mg tablet 10 mg PO TID PRN (Reason: muscle spasm) Qty: 14 0RF ibuprofen 600 mg tablet 600 mg PO Q6H PRN (Reason: pain) Qty: 30 0RF lidocaine 4 % adhesive patch,medicated 1 patch topical DAILY PRN (Reason: pain) Qty: 10 0RF Rx Instructions: may leave on for up to 12 hrs prednisone 20 mg tablet 40 mg PO DAILY Qty: 10 0RF albuterol sulfate 90 mcg/actuation HFA aerosol inhaler 2 puff inhalation Q6H PRN (Reason: asthma) Qty: 18 0RF albuterol sulfate 0.63 mg/3 mL solution for nebulization 0.63 mg inhalation QID PRN (Reason: shortness of breath or wheezing) Qty: 75 0RF azithromycin 250 mg tablet See Rx Instructions .ROUTE .COMPLEX Qty: 6 0RF Rx Instructions: take 500 mg today (day 1), then 250 mg for 4 days (days 2-5) prednisone 20 mg tablet 60 mg PO DAILY 5 Days Qty: 15 0RF doxycycline monohydrate 100 mg capsule 100 mg PO BID 10 Days Qty: 20 0RF albuterol sulfate 90 mcg/actuation HFA aerosol inhaler 1 inh inhalation QID PRN (Reason: shortness of breath or wheezing) Qty: 8.5 0RF Referrals: Justin Freedman [Physician] - (Bilateral red eyes for 11 days) Stand Alone Forms: Work/School Release Interventions: ED Discharge Assessment Last Done: 05/12/22 22:32 Discharge Date/Time: 05/12/22 22:34 Print Language: Latvian
== END 2022-05-12 22:34 | disposition home or self-care (01) ==
PROVIDERS: Emergency Provider Internal Medicine; PCP Pediatrics
DX: H10.33 Unspecified acute conjunctivitis, bilateral (principal)
CPT/HCPCS: 99282; 99283

== ENCOUNTER 2022-06-23 03:33 | Emergency (ER) | payer OTHER, SELFPAY ==
[2022-06-23] VITALS (9 sets, daily range): BP systolic 98–102; BP diastolic 51–58; PULSE 114–137; RESP 14–24; TEMP 36.6–36.9; O2SAT 69–99; BMI 25.0
--- NOTE | ~2022-06-23 | XR_ITS ---
EXAMINATION: XR CHEST CLINICAL INFORMATION: Shortness of breath COMPARISON: 03/23/2021 TECHNIQUE: Frontal view of the chest was obtained. FINDINGS: The lungs are well expanded. There is no focal consolidation, edema, or effusion. No pneumothorax. The cardiomediastinal silhouette is within normal limits. No acute osseous abnormality. XR/XR chest 1V IMPRESSION: Clear lungs.
--- NOTE | 2022-06-23 03:39 | ECG_ITS ---
Test Reason : ASTHMA Blood Pressure : / mmHG Vent. Rate : 131 BPM Atrial Rate : 131 BPM P-R Int : 126 ms QRS Dur : 068 ms QT Int : 294 ms P-R-T Axes : 086 071 051 degrees QTc Int : 434 ms Sinus tachycardia Otherwise normal ECG When compared with ECG of 23-MAR-2021 11:00, Heart rate has increased by 40 Referred By: Lisandro Griffin Electronically Signed By:YOLANDA WAITE MD
[2022-06-23] MEDS: methylPREDNISolone Sod Succ 125 MG/2 ML VIAL IVPUSH (03:54)
--- NOTE | 2022-06-23 03:55 | PC.NURSE ---
Pt arrived via EMS in respiratory distress. Hx of previous intubation. MD, respiratory and RSI kit at the bedside. Pt currenlty on bipap. O2 sat 100% RR 22 HR 138. Will continue to monitor.
[2022-06-23] MEDS: ondansetron HCL 4 MG/2 ML VIAL IVPUSH (04:03)
--- NOTE | 2022-06-23 04:03 | PC.NURSE ---
Pt has had 2 episodes of vomiting. MD aware. Zofran 4mg ordered and administered.
[2022-06-23 04:08] LABS: Basophils Absolute Auto 0.1 X10*3/uL (0.0-0.2); Basophils Percent Auto 0.4 % (0-2); Eosinophils Absolute Auto 1.4 X10*3/uL (0.0-0.4); Eosinophils Percent Auto 5.3 % (0-4); Hematocrit 37.1 % (37.0-47.0); Hemoglobin 12.4 g/dl (12.0-16.0); Imm Gran Pct Auto 0.8 % (0.0-0.4); Lymphocytes Percent Auto 25.1 % (20-40); MANUAL DIFF FLAG SCAN; Mean Corpuscular HGB Conc 33.4 g/dl (31.0-35.0); Mean Corpuscular Hemoglobin 30.6 pg (27.0-33.0); Mean Corpuscular Volume 91.6 fL (80.0-98.0); Mean Platelet Volume 8.9 fL (9.4-12.3); Monocytes Absolute Auto 1.8 X10*3/uL (0.1-1.2); Monocytes Percent Auto 7.1 % (2-11); Neutrophils Absolute Auto 15.7 x10*3/uL (2.0-8.3); Neutrophils Percent Auto 61.3 % (45-73); Platelet Count 383 X10*3/uL (160-400); Red Blood Count 4.05 X10*6/uL (4.20-5.50); Red Cell Distribution Width 13.3 % (11.0-16.0); SCAN SMEAR FLAG 1; White Blood Count 25.5 X10*3/uL (4.8-10.8)
[2022-06-23] MEDS: Albuterol/Iprat 2.5/0.5MG 3 ML AMPUL.NEB INHALE ×2 (04:12→04:41)
[2022-06-23] MEDS: Albuterol Sulfate 2.5 MG/0.5 ML VIAL.NEB 10 MG INHALE (04:13)
[2022-06-23] MEDS: Albuterol Sulfate (0.083%) 2.5 MG/3 ML VIAL.NEB 5 MG INHALE (04:22)
[2022-06-23 04:24] LABS: Alanine Aminotransferase 12 U/L (0-31); Albumin Level 4.1 g/dL (3.5-5.0); Alkaline Phosphatase 61 U/L (39-117); Anion Gap 15 (12-20); Aspartate Amino Transferase 16 U/L (5-31); Bilirubin Total 0.2 mg/dL (0.0-1.0); Blood Urea Nitrogen 10 mg/dL (9-16); Calcium 8.9 mg/dL (8.4-10.2); Carbon Dioxide 20 mmol/L (22-29); Chloride 110 mmol/L (96-108); Creatinine Clr Calc Pharmacy 105.3; Estimated Glomerular Filt Rate > 60; Glucose Random 118 mg/dL (60-115); Lipase 60 U/L (8-78); Potassium 3.8 mmol/L (3.3-5.1); Sodium 141 mmol/L (135-145); Total Protein 6.7 g/dL (6.5-8.0)
[2022-06-23 04:25] LABS: COVID-19 Test Negative (Negative)
[2022-06-23 04:28] LABS: B Type Natriuretic Peptide 21 pg/mL (<100)
[2022-06-23 04:29] LABS: Troponin-I High Sensitivity < 3.5 ng/L (<3.5-17.0)
[2022-06-23 04:31] LABS: IDNOW Serial# 16C4AD1C; Influenza A Negative (Negative); Influenza B2 Negative (Negative)
[2022-06-23 04:34] LABS: Lymphocytes Absolute Auto 6.4 X10*3/uL (1.2-4.9)
[2022-06-23 04:35] LABS: SLIDE REVIEW VERIFIED
[2022-06-23 04:36] LABS: INTERNATIONAL NORM RATIO 0.8 (0.9-1.1); Prothrombin Time 9.6 SEC (10.0-13.1)
--- NOTE | 2022-06-23 04:52 | PC.NURSE ---
[facility]'s transfer Center called at [phone] per spoke with [facility] she stated they are closed to ICU transfers.[facility]'s Transfer line called at [phone] awaiting a call back at this time.
--- NOTE | 2022-06-23 04:52 | ED.SOB ---
HPI - SOB/Dyspnea General Chief Complaint: Dyspnea Stated Complaint: Asthma Time Seen by Provider: 06/23/22 03:37 Source: patient Mode of arrival: EMS Limitations: no limitations History of Present Illness HPI Narrative: 21-year-old female who presents emergency department for evaluation of severe asthma exacerbation. The patient has been sick for approximately 2 days with shortness of breath, wheezing and a cough which is mainly nonproductive. The patient states that she was having chest tightness and she pointed to the center of her chest, she states that this was consistent with an asthma exacerbation. She states the tightness was moderate in intensity and worse with breathing. She states that prior to coming to the emergency department she had increased difficulty breathing and used her albuterol nebulizer 2-3 times with no relief. She then called an ambulance. When the paramedics arrived the patient was tripoding and breathing at 40 breaths per minute. The patient was placed on CPAP and given albuterol 2.5 mg nebulizer and intermuscular epinephrine 0.3 mg IM x2. On arrival to the emergency department the patient was on CPAP and was breathing approximately 40 breaths per minute. Patient was changed to our CPAP machine. She was given in-line nebulizer treatments albuterol 10 mg, DuoNeb 3 mg, albuterol 5 mg and DuoNeb 3 mg. She received Solu-Medrol 125 mg IV as well. The patient had an episode of vomiting which was consistent of partially digested food and after this episode of vomiting she seemed to improve significantly. Her respiratory rate went from the 40 range to 18 and her work of breathing seemed to improve significantly. The patient states that she has been intubated at least 5 times secondary for asthma exacerbation. Her last intubation was in 2017 and she required a tracheostomy at that time. The patient is a , she is getting OBGYN care through [facility]. She states that she has had multiple ultrasounds which have been normal. She states that she is approximately 4 months and her due date is 12/13/2022 which makes her 15 weeks and 2 days based on this date. Related Data Previous Rx's Medication Instructions Recorded albuterol sulfate 90 mcg/actuation 2 puff inhalation Q6H PRN asthma 08/28/20 aerosol inhaler #18 grams prednisone 20 mg tablet 40 mg PO DAILY asthma #10 tabs 08/28/20 albuterol sulfate 0.63 mg/3 mL 0.63 mg (3 mL) inhalation QID PRN 11/18/20 solution for nebulization shortness of breath or wheezing #75 mL albuterol sulfate 90 mcg/actuation 1 inh inhalation QID PRN shortness 11/18/20 aerosol inhaler of breath or wheezing #8.5 grams azithromycin 250 mg tablet See Rx Instructions PO .COMPLEX #6 11/18/20 tabs doxycycline monohydrate 100 mg 100 mg PO BID 10 days #20 caps 11/18/20 capsule prednisone 20 mg tablet 60 mg PO DAILY rash 5 days #15 tabs 11/18/20 cyclobenzaprine 10 mg tablet 10 mg PO TID PRN muscle spasm #14 03/23/21 tabs ibuprofen 600 mg tablet 600 mg PO Q6H PRN pain #30 tabs 03/23/21 lidocaine 4 % topical patch 1 patch topical DAILY PRN pain #10 03/23/21 ea erythromycin 5 mg/gram (0.5 %) eye 0.5 inch ophthalmic (eye) QID 7 05/12/22 ointment days #3.5 grams Allergies Allergy/AdvReac Type Severity Reaction Status Date / Time Atrovent Allergy Unknown hives Uncoded 11/18/20 10:50 From ATROVENT Allergy Unknown SWELLING Uncoded 11/18/20 10:50 Review of Systems Review of Systems: Yes all other systems are reviewed and are negative [facility]LY [facility] Past Medical History [facility] Narrative: Past medical history: Asthma-intubated 5 times in the past, last intubation 2011 requiring tracheostomy. Past surgical history: Tracheostomy. Social history: She denies tobacco, alcohol and drug use. She currently has a GPS monitor bracelet but states that she is not on house arrest but her bracelet will trigger if she goes out of state. Medical History (Updated 06/23/22 @ 05:10 by Lisandro Griffin MD) Asthma Surgical History S/P emergency tracheotomy for assistance in breathing Social History Social History Alcohol intake: current Alcohol intake frequency: holidays/special occasions only Patient Tobacco Use Status: Never used Tobacco Substance Use Type: Marijuana Advance Directives: No Physical Exam Vital Signs: Vital Signs: Last Vital Signs Pulse 128 H 06/23/22 04:41 Resp 16 06/23/22 04:41 Pulse Ox 69 L 06/23/22 03:47 O2 Del Method 06/23/22 03:47 O2 Flow Rate 16 06/23/22 03:47 BMI result Body Mass Index 25.0 Const: Other: Awake, alert, female patient, she appears to be in severe respiratory distress, she is sitting on the bed tripoding forward, she is tachypneic, she is diaphoretic she appears very anxious. Orientation/consciousness: oriented to person HEENT: Head: Yes normal to inspection, Yes normocephalic and Yes atraumatic Ears: external ears normal General nose exam: Normal external nose present Face and sinus: Yes normal facial exam Mouth: Normal oral and palatal mucosa present Throat: Yes posterior oropharynx normal Eyes: General: appearance normal, both eyes and all related structures Pupils: Equal, round and reactive pupils present Neck: Neck: Yes normal visual inspection, Yes no lymphadenopathy, Yes trachea midline and Yes supple Chest: Chest palpation & inspection: normal inspection of the chest and normal palpation of entire chest wall Resp: Other: Tripoding, leaning forward, tachypneic, diffuse wheezing with very prolonged expiratory phase, no rales Cardio: Rate: regular rate Rhythm: regular rhythm Heart sounds: S1 normal heart sound present, S2 normal heart sound present and no murmurs GI: Inspection: Yes normal to inspection Palpation (GI): Soft to palpation, nontender and no guarding Auscultation: normal bowel sounds : General: Yes no CVA tenderness Back/Spine/Pelvis: Back: no CVA tenderness Skin: General skin exam: no rashes or lesions noted Neuro: General: oriented to person Cranial nerves: Yes CN's II-XII intact bilaterally and Yes Equal, round and reactive pupils present Cognition (Neuro): normal cognition Motor exam (neuro): 5/5 motor strength present throughout Extrem: General: Yes normal to inspection Psych: Appearance: grossly normal Affect: Anxious affect present Course Course Course Narrative: 21-year-old female with a history of asthma who has been intubated 5 times in the past, with the last intubation in 2017 requiring tracheostomy, who is a G1, P0, 15 weeks 2 days based on her due date of 12/13/2021 presents emergency department for evaluation of 2 days of shortness of breath, nonproductive cough and chest tightness with worsening of the symptoms prior to coming to the emergency department. On presentation the patient was on CPAP, tripoding, respiratory rate 40 breaths per minute with significant wheezing and prolonged expiratory phase. Patient was treated aggressively with bronchodilators and seem to improve significantly after she had 1 episode of vomiting. She also received Solu-Medrol 125 mg IV. The patient remains on CPAP at 10 with an FiO2 of 20%. 0504: Laboratory evaluation: [place] [address] with 61% neutrophils, 5% eosinophils, 6% lymphocytes. Glucose elevated 118. Lactic acid normal at 2.0. High sensitivity troponin I was below detectable limits. Quantitative beta-hCG is elevated 18,031. COVID-19 and influenza were negative. Radiology evaluation: Chest x-ray one view: interpreted as clear lungs by radiologist heart rate: 130-140 Patient has improved significantly with the above treatment however she is still requiring CPAP. I did contact the wool shearing supervisor on-call, Dr. Chris Hodges however we have no critical care beds at this time. The critical care wool shearing supervisor physician practice assistant Dariwn Baltazar did come to the emergency department and help manage the patient. Given her history of multiple intubations I do not think that she can stay at this facility since we do not have an ICU bed therefore I will try to transfer the patient to facility that has ICU capabilities. [facility] was contacted but they are closed to transfer nurse at this time. 0621: I did contact [facility] and [facility] and they did not have any ability to accept this patient. I did discuss the patient with the [facility] transfer line and the patient was accepted to [facility], excepting physician is Dr. Kurtz. The patient will be transferred on CPAP. ABG on CPAP 10, 25% FiO2 pH 7.39, pCO2 31, PO2 104, bicarb 19. MDM - SOB/Dyspnea Medical Records Attestation: I reviewed the patient's medical records. Lab Data Attestation: I reviewed the patient's lab results. Result diagrams: 06/23/22 04:01 06/23/22 04:00 Labs: Lab Results 06/23/22 06/23/22 06/23/22 Range/Units 04:00 04:00 04:00 WBC (4.8-10.8) X10*3/uL RBC (4.20-5.50) X10*6/uL Hgb (12.0-16.0) g/dl Hct (37.0-47.0) % MCV (80.0-98.0) fL MCH (27.0-33.0) pg MCHC (31.0-35.0) g/dl RDW (11.0-16.0) % Plt Count (160-400) X10*3/uL MPV (9.4-12.3) fL Immature Gran % (Auto) (0.0-0.4) % Neut % (Auto) (45-73) % Lymph % (Auto) (20-40) % Fillmore % (Auto) (2-11) % Eos % (Auto) (0-4) % Baso % (Auto) (0-2) % Lymph # (Auto) (1.2-4.9) X10*3/uL [place] # (Auto) (0.1-1.2) X10*3/uL Eos # (Auto) (0.0-0.4) X10*3/uL Baso # (Auto) (0.0-0.2) X10*3/uL Abs Immat Gran (auto) (0.00-0.03) X10*3/uL Absolute Neuts (auto) (2.0-8.3) x10*3/uL Absolute Nucleated RBC (0.0-0.012) X10*3/uL Nucleated RBC % (auto) (0.0-0.2) /100WBC Smear Tech's Comments PT 9.6 L (10.0-13.1) SEC INR 0.8 L (0.9-1.1) APTT 27.0 (26.0-36.4) SEC O2 Saturation % ABG pH at Pt Temp (7.35-7.45) ABG pCO2 at Pt Temp (32-45) mmHg ABG pO2 at Pt Temp (83-108) mmHg ABG HCO3 (22-26) mmol/L ABG Base Excess (Actual) mmol/L Sodium 141 (135-145) mmol/L Potassium 3.8 (3.3-5.1) mmol/L Chloride 110 H (96-108) mmol/L Carbon Dioxide 20 L (22-29) mmol/L Anion Gap 15 (12-20) BUN 10 (9-16) mg/dL Creatinine 0.76 (0.5-1.4) mg/dL Estim Creat Clear Calc 105.3 Estimated GFR > 60 Random Glucose 118 H (60-115) mg/dL Lactic Acid (0.5-2.0) mmol/L Calcium 8.9 (8.4-10.2) mg/dL Total Bilirubin 0.2 (0.0-1.0) mg/dL AST 16 (5-31) U/L ALT 12 (0-31) U/L Alkaline Phosphatase 61 (39-117) U/L Troponin I High Sens (<3.5-17.0) ng/L B-Natriuretic Peptide 21 (<100) pg/mL Total Protein 6.7 (6.5-8.0) g/dL Albumin 4.1 (3.5-5.0) g/dL Lipase 60 (8-78) U/L Beta HCG, Quant 36216 mIU/mL COVID-19 (YAZMIN) (Negative) COVID-19 Clin Com Influenza Type A (KARLIE) (Negative) Influenza Type B (KARLIE) (Negative) Influenza A & B Note 06/23/22 06/23/22 06/23/22 Range/Units 04:01 04:01 04:01 WBC 25.5 H (4.8-10.8) X10*3/uL RBC 4.05 L (4.20-5.50) X10*6/uL Hgb 12.4 (12.0-16.0) g/dl Hct 37.1 (37.0-47.0) % MCV 91.6 (80.0-98.0) fL MCH 30.6 (27.0-33.0) pg MCHC 33.4 (31.0-35.0) g/dl RDW 13.3 (11.0-16.0) % Plt Count 383 (160-400) X10*3/uL MPV 8.9 L (9.4-12.3) fL Immature Gran % (Auto) 0.8 H (0.0-0.4) % Neut % (Auto) 61.3 (45-73) % Lymph % (Auto) 25.1 (20-40) % Fillmore % (Auto) 7.1 (2-11) % Eos % (Auto) 5.3 H (0-4) % Baso % (Auto) 0.4 (0-2) % Lymph # (Auto) 6.4 H (1.2-4.9) X10*3/uL Fillmore # (Auto) 1.8 H (0.1-1.2) X10*3/uL Eos # (Auto) 1.4 H (0.0-0.4) X10*3/uL Baso # (Auto) 0.1 (0.0-0.2) X10*3/uL Abs Immat Gran (auto) 0.20 H (0.00-0.03) X10*3/uL Absolute Neuts (auto) 15.7 H (2.0-8.3) x10*3/uL Absolute Nucleated RBC 0.000 (0.0-0.012) X10*3/uL Nucleated RBC % (auto) 0.0 (0.0-0.2) /100WBC Smear Tech's Comments VERIFIED PT (10.0-13.1) SEC INR (0.9-1.1) APTT (26.0-36.4) SEC O2 Saturation % ABG pH at Pt Temp (7.35-7.45) ABG pCO2 at Pt Temp (32-45) mmHg ABG pO2 at Pt Temp (83-108) mmHg ABG HCO3 (22-26) mmol/L ABG Base Excess (Actual) mmol/L Sodium (135-145) mmol/L Potassium (3.3-5.1) mmol/L Chloride (96-108) mmol/L Carbon Dioxide (22-29) mmol/L Anion Gap (12-20) BUN (9-16) mg/dL Creatinine (0.5-1.4) mg/dL Estim Creat Clear Calc Estimated GFR Random Glucose (60-115) mg/dL Lactic Acid 2.0 (0.5-2.0) mmol/L Calcium (8.4-10.2) mg/dL Total Bilirubin (0.0-1.0) mg/dL AST (5-31) U/L ALT (0-31) U/L Alkaline Phosphatase (39-117) U/L Troponin I High Sens < 3.5 (<3.5-17.0) ng/L B-Natriuretic Peptide (<100) pg/mL Total Protein (6.5-8.0) g/dL Albumin (3.5-5.0) g/dL Lipase (8-78) U/L Beta HCG, Quant mIU/mL COVID-19 (YAZMIN) (Negative) COVID-19 Clin Com Influenza Type A (KARLIE) (Negative) Influenza Type B (KARLIE) (Negative) Influenza A & B Note 06/23/22 06/23/22 06/23/22 Range/Units 04:01 04:01 05:50 WBC (4.8-10.8) X10*3/uL RBC (4.20-5.50) X10*6/uL Hgb (12.0-16.0) g/dl Hct (37.0-47.0) % MCV (80.0-98.0) fL MCH (27.0-33.0) pg MCHC (31.0-35.0) g/dl RDW (11.0-16.0) % Plt Count (160-400) X10*3/uL MPV (9.4-12.3) fL Immature Gran % (Auto) (0.0-0.4) % Neut % (Auto) (45-73) % Lymph % (Auto) (20-40) % Fillmore % (Auto) (2-11) % Eos % (Auto) (0-4) % Baso % (Auto) (0-2) % Lymph # (Auto) (1.2-4.9) X10*3/uL Fillmore # (Auto) (0.1-1.2) X10*3/uL Eos # (Auto) (0.0-0.4) X10*3/uL Baso # (Auto) (0.0-0.2) X10*3/uL Abs Immat Gran (auto) (0.00-0.03) X10*3/uL Absolute Neuts (auto) (2.0-8.3) x10*3/uL Absolute Nucleated RBC (0.0-0.012) X10*3/uL Nucleated RBC % (auto) (0.0-0.2) /100WBC Smear Tech's Comments PT (10.0-13.1) SEC INR (0.9-1.1) APTT (26.0-36.4) SEC O2 Saturation 98.0 % ABG pH at Pt Temp 7.39 (7.35-7.45) ABG pCO2 at Pt Temp 31 L (32-45) mmHg ABG pO2 at Pt Temp 104 (83-108) mmHg ABG HCO3 19 L (22-26) mmol/L ABG Base Excess (Actual) -4.3 mmol/L Sodium (135-145) mmol/L Potassium (3.3-5.1) mmol/L Chloride (96-108) mmol/L Carbon Dioxide (22-29) mmol/L Anion Gap (12-20) BUN (9-16) mg/dL Creatinine (0.5-1.4) mg/dL Estim Creat Clear Calc Estimated GFR Random Glucose (60-115) mg/dL Lactic Acid (0.5-2.0) mmol/L Calcium (8.4-10.2) mg/dL Total Bilirubin (0.0-1.0) mg/dL AST (5-31) U/L ALT (0-31) U/L Alkaline Phosphatase (39-117) U/L Troponin I High Sens (<3.5-17.0) ng/L B-Natriuretic Peptide (<100) pg/mL Total Protein (6.5-8.0) g/dL Albumin (3.5-5.0) g/dL Lipase (8-78) U/L Beta HCG, Quant mIU/mL COVID-19 (YAZMIN) Negative (Negative) COVID-19 Clin Com See Note Influenza Type A (KARLIE) Negative (Negative) Influenza Type B (KARLIE) Negative (Negative) Influenza A & B Note See Note ECG Data Attestation: I personally reviewed and interpreted this ECG as follows: Interpretation: 0337: Sinus tachycardia with a rate of 135, normal LA interval, QRS duration QTC interval, no ST segment elevation, no ST segment depression, no PACs, no PVCs except for the tachycardia this is a normal EKG. Critical Care Time Critical Care Time Total Critical Care Time: 75 Attestation: Critical Care: The patient was critically ill with a high probability of imminent or life threatening deterioration. I spent greater than 30 minutes of discontinuous time evaluating the patient,delivering critical care at the bedside, discussing and evaluating pertinent data with consultants. Critical care time does not include time spent performing separately billable procedures or teaching. Total time spent performing critical care was 75 minutes. Discharge Plan Discharge Clinical Impression: Acute asthma exacerbation, Second trimester Patient Disposition: [facility] Transfer Details: Transfer to [facility] in [facility], excepting in physician is Dr. Kurtz Prescriptions: No Action cyclobenzaprine 10 mg tablet 10 mg PO TID PRN (Reason: muscle spasm) Qty: 14 0RF ibuprofen 600 mg tablet 600 mg PO Q6H PRN (Reason: pain) Qty: 30 0RF lidocaine 4 % adhesive patch,medicated 1 patch topical DAILY PRN (Reason: pain) Qty: 10 0RF Rx Instructions: may leave on for up to 12 hrs prednisone 20 mg tablet 40 mg PO DAILY Qty: 10 0RF albuterol sulfate 90 mcg/actuation HFA aerosol inhaler 2 puff inhalation Q6H PRN (Reason: asthma) Qty: 18 0RF albuterol sulfate 0.63 mg/3 mL solution for nebulization 0.63 mg inhalation QID PRN (Reason: shortness of breath or wheezing) Qty: 75 0RF azithromycin 250 mg tablet See Rx Instructions .ROUTE .COMPLEX Qty: 6 0RF Rx Instructions: take 500 mg today (day 1), then 250 mg for 4 days (days 2-5) prednisone 20 mg tablet 60 mg PO DAILY 5 Days Qty: 15 0RF doxycycline monohydrate 100 mg capsule 100 mg PO BID 10 Days Qty: 20 0RF albuterol sulfate 90 mcg/actuation HFA aerosol inhaler 1 inh inhalation QID PRN (Reason: shortness of breath or wheezing) Qty: 8.5 0RF erythromycin 5 mg/gram (0.5 %) ointment 0.5 inch ophthalmic (eye) QID 7 Days Qty: 3.5 0RF Rx Instructions: Both eyes
[2022-06-23 05:00] LABS: HCG Quantitative 18031 mIU/mL
--- NOTE | 2022-06-23 05:29 | PC.NURSE ---
At 0527 Sar[facility] called and spoke with they did not except the patient.
--- NOTE | 2022-06-23 05:32 | PC.NURSE ---
[facility] transfer Line called At 0530 spoke with [facility] they are closed to ICU Transfers.
--- NOTE | 2022-06-23 05:38 | PC.NURSE ---
[facility] Transfer Line called at 0537 per . Speaking with provider at this time
[2022-06-23 05:56] LABS: ABG Base Excess -4.3 mmol/L; ABG HCO3 19 mmol/L (22-26); ABG pCO2 31 mmHg (32-45); ABG pH 7.39 (7.35-7.45); ABG pO2 104 mmHg (83-108)
--- NOTE | 2022-06-23 06:27 | PC.NURSE ---
At 0615 accepted patient to [facility] in [facility]. Patient is going to [address] room 18.Nurse to Nurse report .KE Womack called at 0617 for a ALS transfer per awaiting a call back with an ETA.
--- NOTE | 2022-06-23 06:47 | PC.NURSE ---
RN to RN report given to Sadie Correa RN at [facility]. Pt aware of plan of care.
--- NOTE | 2022-06-23 06:58 | PC.NURSE ---
[facility] called at [phone] dispatch stated they need insurance approval before they can transfer patient. regional property manager aware
--- NOTE | 2022-06-23 07:40 | PC.NURSE ---
@1108 CALL RECEIVED FROM [facility] REGARDING THIS PT, ASKING WHAT ROOM SHE IS IN HERE AT [facility], THEN STATES THEY ARE AT LEVEL ZERO FOR ALS TRUCKS, BUT SOON SHE HAS ONE AVAILABLE SHE WILL SEND IT THIS WAY.
--- NOTE | 2022-06-23 09:07 | PC.NURSE ---
pt pulled out both ivs, removed monitor leads, removed bi-pap. she refused ambulance states I'm fucking going to [facility], I don't give a fuck . this property underwriter explained the risks of what can happen if she leaves, she stated you think I don't fucking know . Dr. Shanks also explained the risks of what can happen if she leaves AMA, pt stated 'I don't give a fuck, just give me my fucking papers so I can fucking leave . pt stated hurry the fuck up, my boyfriend is waiting for me outside . Discharge papers given and signed by pt. Mom at the bedside.
== END 2022-06-23 09:00 | disposition left against medical advice (07) ==
PROVIDERS: Emergency Provider Emergency Medicine Emergency Medical Services
DX: J45.901 Unspecified asthma with (acute) exacerbation (principal); R06.02 Shortness of breath; Z20.822 Contact with and (suspected) exposure to COVID-19; Z79.899 Other long term (current) drug therapy
CPT/HCPCS: 36415; 71045; 80053; 82803; 83605; 83690; 83880; 84484; 84702; 85025; 85610; 85730; 87040; 87502; 87635; 93005; 94640; 94660; 96374; 96375; 99285; J2405; J2930

== ENCOUNTER 2024-06-26 08:50 | Emergency (ER) | payer MEDICAID, SELFPAY ==
[2024-06-26 08:58] VITALS: BP 122/77; BP 136/88; PULSE 90; PULSE 92; RESP 18; TEMP 36.5; O2SAT 100; O2SAT 99; BMI 22.7
--- NOTE | 2024-06-26 09:02 | MHC.EDTECH ---
Pt changed to hospital KE koch with pt.
--- NOTE | 2024-06-26 09:48 | ED.NAVMDI ---
HPI - Nausea/Vomiting/Diarrhea General Chief complaint: Nausea/Vomiting/Diarrhea Stated complaint: NAUSEA VOMITING TOOTH PAIN Time Seen by Provider: 06/26/24 09:48 Source: patient Mode of arrival: EMS Limitations: no limitations History of Present Illness ED Provider: Dr. Lisandro Griffin HPI Narrative: 23-year-old female with a history of asthma, depression, anxiety who presents emergency department for evaluation of nausea vomiting shortness of breath right lower mandible pain secondary to broken x2 days. Patient states over the last 2 days she has not been able to eat or drink secondary to nausea and vomiting. She had a fever at home as high as 100 40 degrees F. she states she was feeling short of breath but she denied rhinorrhea, sore throat or cough. She states that her right lower jaw are swollen secondary to a broken tooth in her right lower jaw. She states this pain started yesterday is gotten worse. She states the pain is radiating to her right ear. He was pain, shortness of breath, dyspnea on exertion, diarrhea, frequency, urgency or dysuria. Related Data Previous Rx's ?Medication ?Instructions ?Recorded albuterol sulfate 90 mcg/actuation 2 puff inhalation Q6H PRN asthma 08/28/20 aerosol inhaler #18 grams prednisone 20 mg tablet 40 mg (2 x 20 mg) PO DAILY asthma 08/28/20 #10 tabs albuterol sulfate 0.63 mg/3 mL 0.63 mg (3 mL) inhalation QID PRN 11/18/20 solution for nebulization shortness of breath or wheezing #75 mL albuterol sulfate 90 mcg/actuation 1 inh inhalation QID PRN shortness 11/18/20 aerosol inhaler of breath or wheezing #8.5 grams azithromycin 250 mg tablet See Rx Instructions PO .COMPLEX #6 11/18/20 tabs doxycycline monohydrate 100 mg 100 mg PO BID 10 days #20 caps 11/18/20 capsule prednisone 20 mg tablet 60 mg (3 x 20 mg) PO DAILY rash 5 11/18/20 days #15 tabs cyclobenzaprine 10 mg tablet 10 mg PO TID PRN muscle spasm #14 03/23/21 tabs ibuprofen 600 mg tablet 600 mg PO Q6H PRN pain #30 tabs 03/23/21 lidocaine 4 % topical patch 1 patch topical DAILY PRN pain #10 03/23/21 ea erythromycin 5 mg/gram (0.5 %) eye 0.5 inch ophthalmic (eye) QID 7 05/12/22 ointment days #3.5 grams ibuprofen 400 mg tablet 400 mg PO TID PRN fever or pain 06/26/24 #30 tabs morphine 15 mg immediate release 15 mg PO Q8H PRN pain #10 tabs 06/26/24 tablet ondansetron 4 mg disintegrating 4 mg PO Q6-8H PRN nausea and 06/26/24 tablet vomiting #14 tabs penicillin V potassium 500 mg 500 mg PO QID 7 days #28 tabs 06/26/24 tablet Allergies Allergy/AdvReac Type Severity Reaction Status Date / Time Atrovent Allergy Unknown hives Uncoded 06/26/24 09:00 From ATROVENT Allergy Unknown SWELLING Uncoded 06/26/24 09:00 Review of Systems Review of Systems: Yes all other systems are reviewed and are negative [facility] Past Medical History [facility] Narrative: Social history: She denies tobacco and alcohol use. She states she occasionally smokes marijuana. Medical History Anxiety and depression Asthma Severe persistent asthma dependent on systemic steroids Surgical History S/P emergency tracheotomy for assistance in breathing Family History Family History (Updated 09/18/22 @ 10:38 by LIDNA Maldonado) Mother Gastritis Father Severe asthma Brother Asthma Environmental allergies Sister No problems noted. Sister No problems noted. Social History Social History Alcohol intake: current Alcohol intake frequency: holidays/special occasions only Patient Tobacco Use Status: Never used Tobacco Smoked in Last 30 Days: No Use of substances other than those prescribed or required for medical reasons: Yes Substance Use Type: Marijuana Advance Directives: No Advance Directives Information Provided: Yes Do you have a plan to hurt others: No Plan Patient : No Physical Exam Vital Signs: Vital Signs: Last Vital Signs Temp 98.1 F 06/26/24 14:19 Pulse 78 06/26/24 14:19 Resp 16 06/26/24 14:19 BP 107/56 L 06/26/24 14:19 Pulse Ox 98 06/26/24 14:19 O2 Del Method Room Air 06/26/24 14:19 BMI result Body Mass Index 22.7 Vital signs were normal Exam: General: Awake, alert in no distress Head: Normocephalic, atraumatic, patient does have slight swelling of her right proximal mandible with tenderness palpation he was here EENT: PERRL, Lids normal, sclera normal, conjunctiva normal, nose normal , ears normal, throat without erythema or exudates. No significant dental care or gingival swelling. Patient does have tenderness palpation of the buccal gingiva around 29-32. Tooth 31 is very tender to palpation. Neck: Supple, no adenopathy Lung: breath sounds symmetric, no wheezing, rales or rhonchi Chest: symmetric movement, nontender Heart: regular rate and rhythm, normal S1, S2 no murmurs or rubs Abdomen: soft, moderate, diffuse, nonlocalizing tenderness, nondistended, normal bowel sounds, no rebound, no voluntary or involuntary guarding Back: no vertebral tenderness, no CVAT Extremities: no deformities, moves all extremities symmetrically Neuro: Awake, alert, oriented, normal speech, cranial nerves intact, moves all extremities symmetrically Psych: Pleasant, cooperative Medications Administered Discontinued Medications Generic Name Dose Route Start Last Admin Trade Name Freq PRN Reason Stop Dose Admin Diphenhydramine HCl 50 mg 06/26/24 10:02 06/26/24 10:21 Diphenhydramine Hcl 50 Mg/Ml Vial IVPUSH 06/26/24 10:03 50 mg ONCE STA Administration Sodium Chloride 1,000 mls @ 999 mls/hr 06/26/24 10:02 06/26/24 13:06 Ns IV 06/26/24 11:02 Infused .Q1H1M STA Infusion Ketorolac Tromethamine 15 mg 06/26/24 10:02 06/26/24 10:21 Ketorolac Tromethamine 15 Mg/Ml Vial IVPUSH 06/26/24 10:03 15 mg ONCE STA Administration Metoclopramide HCl 10 mg 06/26/24 10:02 06/26/24 10:21 Metoclopramide Hcl 10 Mg/2 Ml Vial IVPUSH 06/26/24 10:03 10 mg ONCE STA Administration Morphine Sulfate 4 mg 06/26/24 11:39 06/26/24 11:48 Morphine Sulfate 4 Mg/Ml Cartridge IVPUSH 06/26/24 11:40 4 mg ONCE STA Administration Protocol Ondansetron HCl 4 mg 06/26/24 11:39 06/26/24 11:48 Ondansetron Hcl 4 Mg/2 Ml Vial IVPUSH 06/26/24 11:40 4 mg ONCE ONE Administration Medical Decision Making Medical Decision Making [facility] Narrative: 23-year-old female with a history of asthma, depression, anxiety who presents emergency department for evaluation of nausea vomiting, shortness of breath, right lower mandible pain secondary to broken x2 days. Patient states over the last 2 days she has not been able to eat or drink secondary to nausea and vomiting. She had a fever at home as high as 104 degrees F. kept states she was feeling short of breath but she denied rhinorrhea, sore throat or cough. She states that her right lower jaw are swollen secondary to a broken tooth in her right lower jaw. Vital signs were normal. Patient was actively vomiting. Patient has tenderness palpation of the gingiva and tooth 31. She also has diffuse moderate nonlocalizing abdominal tenderness. Differential diagnosis: ?Includes but is not limited to gastritis, pancreatitis, viral syndrome, cyclic vomiting syndrome, dental care he was, dental infection Following evaluation was ordered: CBC, CMP, lipase, urinalysis, quantitative beta-hCG, COVID-19, influenza, RSV Patient was initially treated with the following: Toradol 15 mg IV, Reglan 10 mg IV, Benadryl 50 mg IV, normal saline IV x1 L. Course: 11:47 My interpretation patient's laboratory evaluation is as follows: 1800. Chloride elevated 109. BUN creatinine were normal. Electrolytes were normal. LFT was normal. Lipase was normal. Quantitative beta-hCG was below detectable limits. COVID-19, influenza and RSV were negative. Patient got minimal relief of her pain, nausea and vomiting with the above treatment. She was ordered to get morphine 4 mg IV and Zofran 4 mg IV. Patient most likely has a viral syndrome or may have cyclic vomiting syndrome secondary to marijuana use. 14:48 Patient was feeling better and she was able to drink nessa jordan. Patient most likely has a viral syndrome. Patient also has a dental infection which I will treat with penicillin 500 mg 4 times a day for 7 days. Patient was also prescribed Tylenol and ibuprofen and for pain not relieved by these medications she was prescribed morphine. She was also given a prescription for Zofran ODT. Patient was given printed and verbal instructions and discharged home. She was advised to stay on a JENNY diet for the next 24 hours. Admission/Observation Consideration of admission/observation: Escalation of care including admission/observation considered (Yes) Lab Data MDM Lab Attestation statement: I reviewed the patient's lab results. 06/26/24 09:46 06/26/24 09:46 Labs: Lab Results 06/26/24 Range/Units 09:46 WBC 11.8 H (4.8-10.8) X10*3/uL RBC 4.35 (4.20-5.50) X10*6/uL Hgb 13.4 (12.0-16.0) g/dl Hct 38.5 (37.0-47.0) % MCV 88.5 (80.0-98.0) fL MCH 30.8 (27.0-33.0) pg MCHC 34.8 (31.0-35.0) g/dl RDW 12.6 (11.0-16.0) % Plt Count 378 (160-400) X10*3/uL MPV 8.8 L (9.4-12.3) fL Immature Gran % (Auto) 0.3 (0.0-0.4) % Neut % (Auto) 79.1 H (45-73) % Lymph % (Auto) 10.1 L (20-40) % [place] % (Auto) 5.9 (2-11) % Eos % (Auto) 4.1 H (0-4) % Baso % (Auto) 0.5 (0-2) % Lymph # (Auto) 1.2 (1.2-4.9) X10*3/uL [place] # (Auto) 0.7 (0.1-1.2) X10*3/uL Eos # (Auto) 0.5 H (0.0-0.4) X10*3/uL Baso # (Auto) 0.1 (0.0-0.2) X10*3/uL Abs Immat Gran (auto) 0.04 H (0.00-0.03) X10*3/uL Absolute Neuts (auto) 9.3 H (2.0-8.3) x10*3/uL Absolute Nucleated RBC 0.000 (0.0-0.012) X10*3/uL Nucleated RBC % (auto) 0.0 (0.0-0.2) /100WBC Sodium 140 (135-145) mmol/L Potassium 3.3 (3.3-5.1) mmol/L Chloride 109 H (96-108) mmol/L Carbon Dioxide 22 (22-29) mmol/L Anion Gap 12 (12-20) BUN 7 L (9-16) mg/dL Creatinine 0.87 (0.5-1.4) mg/dL Estim Creat Clear Calc 90.4 Estimated GFR > 60 Random Glucose 104 (60-115) mg/dL Calcium 9.3 (8.4-10.2) mg/dL Total Bilirubin 0.3 (0.0-1.0) mg/dL AST 21 (5-31) U/L ALT 12 (0-31) U/L Alkaline Phosphatase 62 (39-117) U/L Total Protein 6.8 (6.5-8.0) g/dL Albumin 4.1 (3.5-5.0) g/dL Lipase 17 (8-78) U/L Beta HCG, Quant < 2 mIU/mL Influenza Type A (PCR) NEGATIVE (Negative) Influenza Type B (PCR) NEGATIVE (Negative) RSV RNA Qual (PCR) NEGATIVE (Negative) SARS-CoV-2 RNA (RT-PCR) NEGATIVE (Negative) Prescription Management I considered prescription management with: Pain Medication and Antibiotic Chronic Conditions Patient?s care impacted by: Other (Asthma) Discharge Plan Discharge Clinical Impression: Viral syndrome, Vomiting, Dental infection Patient Disposition: Home, Self-Care Instructions: Dental Abscess (ED), Viral Syndrome (ED) Additional Instructions: Your blood work was unremarkable. At this time I believe that you have a viral infection that caused your nausea and vomiting. You also have a dental infection/abscess. Take penicillin 500 mg pills, 1 pill 4 times a day for 7 days this should treat your dental infection. If your right side of your face gets swollen or is more painful apply heating pad on low or warm compress for 15 minutes 4 times a day. This will increase the blood flow to the area and help heal the dental infection. Take ibuprofen 400 mg pills, 1 pills every 6 hours as needed for pain. Take Tylenol (acetaminophen) 500 mg pills, 2 pills every 6 hours as needed for pain. For pain not relieved by ibuprofen or Tylenol take morphine 15 mg pills, 1 pill every 6 hours as needed for pain. This medication will make you sleepy, do not drive or work while taking this medication. Morphine is a narcotic medication and can be addicting. If you are concerned about addiction you can ask the pharmacist for less pills or do not get this prescription filled. Take Zofran ODT 4 mg pills, 1 pill dissolved in your mouth every 8 hours as needed for nausea and vomiting. For the next 24 hours, stay on a JENNY diet (bananas, rice, applesauce, tea and toast). Follow-up with your doctor in 2 days. Please return to the emergency department if your symptoms get worse or if you develop any symptoms that are concerning to you. It is important that you contact your dentist to get follow-up for your dental infection. Prescriptions: New penicillin V potassium 500 mg tablet 500 mg PO QID 7 Days Qty: 28 0RF ibuprofen 400 mg tablet 400 mg PO TID PRN (Reason: fever or pain) Qty: 30 0RF morphine 15 mg tablet 15 mg PO Q8H PRN (Reason: pain) Qty: 10 0RF Rx Instructions: Partial Fill upon patient request. ondansetron 4 mg tablet,disintegrating 4 mg PO Q6-8H PRN (Reason: nausea and vomiting) Qty: 14 0RF No Action cyclobenzaprine 10 mg tablet 10 mg PO TID PRN (Reason: muscle spasm) Qty: 14 0RF ibuprofen 600 mg tablet 600 mg PO Q6H PRN (Reason: pain) Qty: 30 0RF lidocaine 4 % adhesive patch,medicated 1 patch topical DAILY PRN (Reason: pain) Qty: 10 0RF Rx Instructions: may leave on for up to 12 hrs prednisone 20 mg tablet 40 mg PO DAILY Qty: 10 0RF albuterol sulfate 90 mcg/actuation HFA aerosol inhaler 2 puff inhalation Q6H PRN (Reason: asthma) Qty: 18 0RF albuterol sulfate 0.63 mg/3 mL solution for nebulization 0.63 mg inhalation QID PRN (Reason: shortness of breath or wheezing) Qty: 75 0RF azithromycin 250 mg tablet See Rx Instructions .ROUTE .COMPLEX Qty: 6 0RF Rx Instructions: take 500 mg today (day 1), then 250 mg for 4 days (days 2-5) prednisone 20 mg tablet 60 mg PO DAILY 5 Days Qty: 15 0RF doxycycline monohydrate 100 mg capsule 100 mg PO BID 10 Days Qty: 20 0RF albuterol sulfate 90 mcg/actuation HFA aerosol inhaler 1 inh inhalation QID PRN (Reason: shortness of breath or wheezing) Qty: 8.5 0RF erythromycin 5 mg/gram (0.5 %) ointment 0.5 inch ophthalmic (eye) QID 7 Days Qty: 3.5 0RF Rx Instructions: Both eyes Print Language: Yakut
--- NOTE | 2024-06-26 09:49 | PC.NURSE ---
protocol put in for patient, iv inserted, labs drawn, swab obtained, pt has vomited 400 cc into emesis bag.
[2024-06-26 09:50] LABS: MANUAL DIFF FLAG NO
[2024-06-26 09:51] LABS: Basophils Absolute Auto 0.1 X10*3/uL (0.0-0.2); Basophils Percent Auto 0.5 % (0-2); Eosinophils Absolute Auto 0.5 X10*3/uL (0.0-0.4); Eosinophils Percent Auto 4.1 % (0-4); Hematocrit 38.5 % (37.0-47.0); Hemoglobin 13.4 g/dl (12.0-16.0); Imm Gran Abs Auto 0.04 X10*3/uL (0.00-0.03); Imm Gran Pct Auto 0.3 % (0.0-0.4); Lymphocytes Absolute Auto 1.2 X10*3/uL (1.2-4.9); Lymphocytes Percent Auto 10.1 % (20-40); Mean Corpuscular HGB Conc 34.8 g/dl (31.0-35.0); Mean Corpuscular Hemoglobin 30.8 pg (27.0-33.0); Mean Corpuscular Volume 88.5 fL (80.0-98.0); Mean Platelet Volume 8.8 fL (9.4-12.3); Monocytes Absolute Auto 0.7 X10*3/uL (0.1-1.2); Monocytes Percent Auto 5.9 % (2-11); Neutrophils Absolute Auto 9.3 x10*3/uL (2.0-8.3); Neutrophils Percent Auto 79.1 % (45-73); Platelet Count 378 X10*3/uL (160-400); Red Blood Count 4.35 X10*6/uL (4.20-5.50); Red Cell Distribution Width 12.6 % (11.0-16.0); White Blood Count 11.8 X10*3/uL (4.8-10.8)
[2024-06-26 10:05] VITALS: BP 120/66; PULSE 87; RESP 16; TEMP 36.4; O2SAT 98
[2024-06-26 10:11] LABS: Alanine Aminotransferase 12 U/L (0-31); Albumin Level 4.1 g/dL (3.5-5.0); Alkaline Phosphatase 62 U/L (39-117); Anion Gap 12 (12-20); Aspartate Amino Transferase 21 U/L (5-31); Bilirubin Total 0.3 mg/dL (0.0-1.0); Blood Urea Nitrogen 7 mg/dL (9-16); Calcium 9.3 mg/dL (8.4-10.2); Carbon Dioxide 22 mmol/L (22-29); Chloride 109 mmol/L (96-108); Creatinine Clr Calc Pharmacy 90.4; Estimated Glomerular Filt Rate > 60; Glucose Random 104 mg/dL (60-115); Potassium 3.3 mmol/L (3.3-5.1); Sodium 140 mmol/L (135-145); Total Protein 6.8 g/dL (6.5-8.0)
[2024-06-26 10:19] LABS: Lipase 17 U/L (8-78)
[2024-06-26] MEDS: Metoclopramide HCl 10 MG/2 ML VIAL IVPUSH (10:21)
[2024-06-26] MEDS: Ketorolac Tromethamine 15 MG/ML VIAL IVPUSH (10:21)
[2024-06-26] MEDS: diphenhydrAMINE HCL 50 MG/ML VIAL IVPUSH (10:21)
--- NOTE | 2024-06-26 10:21 | MHC.EDTECH ---
pt aware we need urine sample, stated she cannot go yet.
[2024-06-26] MEDS: 0.9 % Sodium Chloride 1,000 ML 999 ML IV (10:22)
[2024-06-26 10:37] LABS: Influenza A PCR NEGATIVE (Negative); Influenza B PCR NEGATIVE (Negative); Resp Syncy Virus RNA Qual PCR NEGATIVE (Negative); SARS COV2 PCR INHOUSE NEGATIVE (Negative)
[2024-06-26 10:38] LABS: HCG Quantitative < 2 mIU/mL
--- NOTE | 2024-06-26 10:40 | PC.NURSE ---
IVF started per order, pt medicated per order, call early within reach, will continue to monitor
--- NOTE | 2024-06-26 11:22 | PC.NURSE ---
pt had one episode of emesis after med administration- MD Griffin notified via [employer].
[2024-06-26] MEDS: Morphine Sulfate 4 MG/ML CARTRIDGE IVPUSH (11:48)
[2024-06-26] MEDS: ondansetron HCL 4 MG/2 ML VIAL IVPUSH (11:48)
[2024-06-26 14:19] VITALS: BP 107/56; PULSE 78; RESP 16; TEMP 36.7; O2SAT 98
[2024-06-26 15:42] VITALS: BP 107/56; PULSE 78; RESP 16; TEMP 36.7; O2SAT 98
== END 2024-06-26 15:43 | disposition home or self-care (01) ==
PROVIDERS: Emergency Provider Emergency Medicine Emergency Medical Services
DX: K04.7 Periapical abscess without sinus (principal); B34.9 Viral infection, unspecified; R11.2 Nausea with vomiting, unspecified; R06.02 Shortness of breath; Z03.818 Encounter for observation for suspected exposure to other biological agents ruled out; Z79.899 Other long term (current) drug therapy
CPT/HCPCS: 0241U; 36415; 80053; 83690; 84702; 85025; 96361; 96374; 96375; 99284; J1200; J1885; J2270; J2405; J2765

== ENCOUNTER 2024-06-28 00:57 | Emergency (ER) | payer MEDICAID, SELFPAY ==
[2024-06-28 01:00] VITALS: BP 136/84; PULSE 116; RESP 20; TEMP 36.8; O2SAT 99; BMI 20.3
[2024-06-28] MEDS: Lidocaine HCl 1 % MPF 5 ML VIAL 10 ML SUBCUT (04:00)
--- NOTE | 2024-06-28 04:12 | ED.DENTAL ---
HPI - Dental/Oral General Chief complaint: Dental/Oral Stated complaint: tooth infection Time Seen by Provider: 06/28/24 03:47 Source: patient Mode of arrival: ambulatory Limitations: no limitations History of Present Illness ED Provider: DR. Araujo HPI Narrative: Came in for evaluation of right facial swelling and dental pain. Patient was seen yesterday for dental infection patient was prescribed penicillin woke up today with swelling of the right Jaw, no fever, no chills. Teeth map: 1. Tenderness, gum swelling and fluctuation. Related Data Previous Rx's ?Medication ?Instructions ?Recorded albuterol sulfate 90 mcg/actuation 2 puff inhalation Q6H PRN asthma 08/28/20 aerosol inhaler #18 grams prednisone 20 mg tablet 40 mg (2 x 20 mg) PO DAILY asthma 08/28/20 #10 tabs albuterol sulfate 0.63 mg/3 mL 0.63 mg (3 mL) inhalation QID PRN 11/18/20 solution for nebulization shortness of breath or wheezing #75 mL albuterol sulfate 90 mcg/actuation 1 inh inhalation QID PRN shortness 11/18/20 aerosol inhaler of breath or wheezing #8.5 grams azithromycin 250 mg tablet See Rx Instructions PO .COMPLEX #6 11/18/20 tabs doxycycline monohydrate 100 mg 100 mg PO BID 10 days #20 caps 11/18/20 capsule prednisone 20 mg tablet 60 mg (3 x 20 mg) PO DAILY rash 5 11/18/20 days #15 tabs cyclobenzaprine 10 mg tablet 10 mg PO TID PRN muscle spasm #14 03/23/21 tabs ibuprofen 600 mg tablet 600 mg PO Q6H PRN pain #30 tabs 03/23/21 lidocaine 4 % topical patch 1 patch topical DAILY PRN pain #10 03/23/21 ea erythromycin 5 mg/gram (0.5 %) eye 0.5 inch ophthalmic (eye) QID 7 05/12/22 ointment days #3.5 grams ibuprofen 400 mg tablet 400 mg PO TID PRN fever or pain 06/26/24 #30 tabs morphine 15 mg immediate release 15 mg PO Q8H PRN pain #10 tabs 06/26/24 tablet ondansetron 4 mg disintegrating 4 mg PO Q6-8H PRN nausea and 06/26/24 tablet vomiting #14 tabs penicillin V potassium 500 mg 500 mg PO QID 7 days #28 tabs 06/26/24 tablet Allergies Allergy/AdvReac Type Severity Reaction Status Date / Time Atrovent Allergy Unknown hives Uncoded 06/28/24 01:04 From ATROVENT Allergy Unknown SWELLING Uncoded 06/26/24 09:00 [facility] Past Medical History Medical History Anxiety and depression Asthma Severe persistent asthma dependent on systemic steroids Surgical History S/P emergency tracheotomy for assistance in breathing Family History Family History (Updated 09/18/22 @ 10:38 by LINDA Maldonado) Mother Gastritis Father Severe asthma Brother Asthma Environmental allergies Sister No problems noted. Sister No problems noted. Social History Social History Alcohol intake: current Alcohol intake frequency: holidays/special occasions only Patient Tobacco Use Status: Never used Tobacco Smoked in Last 30 Days: No Use of substances other than those prescribed or required for medical reasons: Yes Substance Use Type: Marijuana Advance Directives: No Advance Directives Information Provided: No Do you have a plan to hurt others: No Plan Patient : No Physical Exam Vital Signs: Vital Signs: Last Vital Signs Temp 0 F L 06/28/24 05:59 Pulse 0 L 06/28/24 05:59 Resp 0 L 06/28/24 05:59 BP 00/00 L 06/28/24 05:59 Pulse Ox 0 L 06/28/24 05:59 O2 Del Method Room Air 06/28/24 01:00 BMI result Body Mass Index 20.3 Course Reevaluation(s) Reevaluation #1: The plan is to I and D dental abscess patient eloped, patient has an appointment with a dentist. Time: 07:44 Medications Administered Discontinued Medications Generic Name Dose Route Start Last Admin Trade Name Freq PRN Reason Stop Dose Admin Lidocaine HCl 10 ml 06/28/24 03:57 06/28/24 04:00 Lidocaine Hcl 1 % Mpf 5 Ml Vial SUBCUT 06/28/24 03:58 10 ml ONCE ONE Administration Medical Decision Making Differential Diagnosis Differential Diagnoses: The differential diagnosis associated with the presentation includes (Dental abscess, gingivitis, dental infection.) Admission/Observation Consideration of admission/observation: Escalation of care including admission/observation considered Discharge Plan Discharge Clinical Impression: Dental infection Patient Disposition: Elopement Prescriptions: No Action cyclobenzaprine 10 mg tablet 10 mg PO TID PRN (Reason: muscle spasm) Qty: 14 0RF ibuprofen 600 mg tablet 600 mg PO Q6H PRN (Reason: pain) Qty: 30 0RF lidocaine 4 % adhesive patch,medicated 1 patch topical DAILY PRN (Reason: pain) Qty: 10 0RF Rx Instructions: may leave on for up to 12 hrs prednisone 20 mg tablet 40 mg PO DAILY Qty: 10 0RF albuterol sulfate 90 mcg/actuation HFA aerosol inhaler 2 puff inhalation Q6H PRN (Reason: asthma) Qty: 18 0RF albuterol sulfate 0.63 mg/3 mL solution for nebulization 0.63 mg inhalation QID PRN (Reason: shortness of breath or wheezing) Qty: 75 0RF azithromycin 250 mg tablet See Rx Instructions .ROUTE .COMPLEX Qty: 6 0RF Rx Instructions: take 500 mg today (day 1), then 250 mg for 4 days (days 2-5) prednisone 20 mg tablet 60 mg PO DAILY 5 Days Qty: 15 0RF doxycycline monohydrate 100 mg capsule 100 mg PO BID 10 Days Qty: 20 0RF albuterol sulfate 90 mcg/actuation HFA aerosol inhaler 1 inh inhalation QID PRN (Reason: shortness of breath or wheezing) Qty: 8.5 0RF erythromycin 5 mg/gram (0.5 %) ointment 0.5 inch ophthalmic (eye) QID 7 Days Qty: 3.5 0RF Rx Instructions: Both eyes penicillin V potassium 500 mg tablet 500 mg PO QID 7 Days Qty: 28 0RF ibuprofen 400 mg tablet 400 mg PO TID PRN (Reason: fever or pain) Qty: 30 0RF morphine 15 mg tablet 15 mg PO Q8H PRN (Reason: pain) Qty: 10 0RF Rx Instructions: Partial Fill upon patient request. ondansetron 4 mg tablet,disintegrating 4 mg PO Q6-8H PRN (Reason: nausea and vomiting) Qty: 14 0RF Interventions: ED Discharge Assessment Last Done: 06/28/24 05:59 Discharge Date/Time: 06/28/24 06:00 Print Language: Albanian
[2024-06-28 05:59] VITALS: BP 00/00; PULSE 0; RESP 0; TEMP -17.7; TEMP 0; O2SAT 0
--- NOTE | 2024-06-28 06:03 | PC.NURSE ---
RN to [facility] to discharge another patient and this patient was found to not be in the room or nearby bathrooms.
== END 2024-06-28 06:00 | disposition left against medical advice (07) ==
PROVIDERS: Emergency Provider Emergency Medicine
DX: K04.7 Periapical abscess without sinus (principal); Z79.899 Other long term (current) drug therapy
CPT/HCPCS: 99283; J2003

== ENCOUNTER 2025-08-16 09:18 | Emergency (ER) | payer MEDICAID, SELFPAY ==
--- NOTE | ~2025-08-16 | XR_ITS ---
EXAMINATION: XR CHEST CLINICAL INFORMATION: productive cough 2 weeks COMPARISON: Radiographs on June 23, 2022 TECHNIQUE: 2 views of the chest were obtained. FINDINGS: Lungs: No focal consolidation or evidence of pulmonary edema. Pleura: No pleural effusion or pneumothorax. Heart/Mediastinum: Cardiomediastinal silhouette is within normal limits. Bones: No acute findings. XR/XR chest 2V IMPRESSION: No acute cardiopulmonary process. Electronically signed by: Radhames Lobo MD 08/16/2025 10:13 AM [facility]
--- NOTE | 2025-08-16 09:26 | ED.GENADULT ---
HPI - General Adult General Chief complaint: Upper Respiratory Symptoms Stated complaint: pneumonia Time Seen by Provider: 08/16/25 09:30 History of Present Illness ED Provider: Jennifer Oerllana NP HPI narrative: 24-year-old female medical history significant for asthma, status post emergency tracheotomy for assistance in breathing (now reversed), anxiety and depression, presents to the ED for evaluation reporting productive cough with yellow-green sputum production, nasal congestion with clear rhinorrhea, and generalized myalgias ongoing for the past several days. No fever, chills. No chest pain or pressure. No shortness of breath. No abdominal pain, nausea or vomiting, urinary complaints. No known sick contacts at home, though she has 2 children. Related Data Previous Rx's ?Medication ?Instructions ?Recorded lidocaine 4 % topical patch 1 patch topical DAILY PRN pain #10 03/23/21 ea erythromycin 5 mg/gram (0.5 %) eye 0.5 inch ophthalmic (eye) QID 7 05/12/22 ointment days #3.5 grams morphine 15 mg immediate release 15 mg PO Q8H PRN pain #10 tabs 06/26/24 tablet ondansetron 4 mg disintegrating 4 mg PO Q6-8H PRN nausea and 06/26/24 tablet vomiting #14 tabs albuterol sulfate 0.63 mg/3 mL 0.63 mg (3 mL) inhalation QID PRN 08/16/25 solution for nebulization shortness of breath or wheezing #75 mL albuterol sulfate 90 mcg/actuation 2 puff inhalation Q6H PRN asthma 08/16/25 aerosol inhaler #18 grams Allergies Allergy/AdvReac Type Severity Reaction Status Date / Time Atrovent Allergy Unknown hives Uncoded 08/16/25 09:32 From ATROVENT Allergy Unknown SWELLING Uncoded 08/16/25 09:32 Review of Systems Review of Systems: ROS is otherwise negative unless mentioned in HPI. [facility] Past Medical History Medical History Anxiety and depression Asthma Severe persistent asthma dependent on systemic steroids Surgical History S/P emergency tracheotomy for assistance in breathing Family History Family History (Updated 09/18/22 @ 10:38 by Kerry [place], LITHOGRAPHIC PLATE MAKER APPRENTICE) Mother Gastritis Father Severe asthma Brother Asthma Environmental allergies Sister No problems noted. Sister No problems noted. Social History Social History Alcohol intake: current Alcohol intake frequency: holidays/special occasions only Patient Tobacco Use Status: Never used Tobacco Smoked in Last 30 Days: No Use of substances other than those prescribed or required for medical reasons: No Substance Use Type: Marijuana Advance Directives: No Advance Directives Information Provided: No Do you have a plan to hurt others: No Plan Patient : No Physical Exam ED Exam Exam: Nursing notes and vital signs reviewed. Constitutional: Well-appearing, NAD. Alert. Oriented X3. Eyes: EOMI. ENT: Pharynx normal. Neck: Normal inspection. Neck supple. CVS: Normal heart rate and rhythm. Pulses normal. Respiratory: No respiratory distress. Breath sounds normal. Skin: Skin warm and dry. Normal skin color. Extremities: No lower extremity edema. Neuro: Oriented X 3. No motor deficit. Vital Signs: Vital Signs - 24 hr 08/16/25 09:30 Temperature 98.1 F Pulse Rate 99 Respiratory Rate 16 Blood Pressure 124/65 Pulse Oximetry 98 Oxygen Delivery Method Room Air BMI result Body Mass Index 24.1 Course Course Course Narrative: This is a rapid medical exam performed by Mariaelena Clemente NP: Additional HPI, ROS, PE not included below will be deferred to primary provider. Patient is a 24y/o F with pmhx of asthma, s/p emergency tracheotomy, anxiety and depression, 3 mos presenting to the emergency department with complaint of shortness of breath and productive cough for the past 2 weeks. Denies fevers. Expiratory wheezing throughout. Plan: viral serology, cxr Medical Decision Making Medical Decision Making [place] Narrative: Upon my assessment of the patient, she overall appears well, answers questions appropriately. Complaining of a cough, productive of yellow to green sputum ongoing for several days. Viral illness like symptoms as well. Plan for x-ray of the chest, serology, we will reassess. She is vitally stable and afebrile in the ED. 12:15 PM-- viral panel is negative. X-ray of the chest with no acute pneumonia. She has remained vitally stable while in the ED. We will proceed with discharge plan with outpatient follow up with primary care. She further requested I refill her albuterol nebulizers, as well as her albuterol inhaler. I will refill this, and have her follow up with primary care. Patient is agreeable. Given return precautions to the ED. Differential Diagnosis Differential Diagnoses: The differential diagnosis associated with the presentation includes viral illness, bronchitis, PNA Admission/Observation Consideration of admission/observation: Escalation of care including admission/observation considered (Not indicated) Lab Data MDM Lab Attestation statement: I reviewed the patient's lab results. (Serology is negative.) Labs: Lab Results 08/16/25 Range/Units 11:27 Influenza Type A (PCR) NEGATIVE (Negative) Influenza Type B (PCR) NEGATIVE (Negative) RSV RNA Qual (PCR) NEGATIVE (Negative) SARS-CoV-2 RNA (RT-PCR) NEGATIVE (Negative) Independent Interpretation I performed an independent interpretation of an: Plain X-Ray Interpretation: I have reviewed the patient's imaging and agree with the radiologist's findings. Radiology Impression Discussion of test interpretation with radiology: I have reviewed the radiologist's reading. Radiologist Impression: XR/XR chest 2V IMPRESSION: No acute cardiopulmonary process. External Record Review External record reviewed: Outside ED record Prescription Management I considered prescription management with: Antiviral Not indicated. Chronic Conditions Patient?s care impacted by: Other (Asthma) Social Determinants Patient?s care significantly limited by Social Determinants of Health including: Problems related to primary support group Discharge Plan Discharge Clinical Impression: Viral illness, Encounter for medication refill Patient Disposition: Home, Self-Care Instructions: Viral Syndrome (ED), Medicine Refill (ED) Additional Instructions: As we discussed, you were seen here today for evaluation of cough and viral illness like symptoms. Your viral panel for COVID, flu, RSV was negative. The x-ray of the chest shows no acute pneumonia. You likely have an acute viral illness, similar to the common cold. Please take [id number] Tylenol, ibuprofen as needed. Additionally, I have refilled your medications as you requested, your albuterol nebulizer and your albuterol inhaler. For any additional medication refill, please and follow up with your primary care provider. With any new or worsening complaints at any time, return back to the ED for additional assessment. Prescriptions: Continued albuterol sulfate 0.63 mg/3 mL solution for nebulization 0.63 mg inhalation QID PRN (Reason: shortness of breath or wheezing) Qty: 75 1RF albuterol sulfate 90 mcg/actuation HFA aerosol inhaler 2 puff inhalation Q6H PRN (Reason: asthma) Qty: 18 1RF Discontinued cyclobenzaprine 10 mg tablet 10 mg PO TID PRN (Reason: muscle spasm) Qty: 14 0RF ibuprofen 600 mg tablet 600 mg PO Q6H PRN (Reason: pain) Qty: 30 0RF prednisone 20 mg tablet 40 mg PO DAILY Qty: 10 0RF azithromycin 250 mg tablet See Rx Instructions .ROUTE .COMPLEX Qty: 6 0RF Rx Instructions: take 500 mg today (day 1), then 250 mg for 4 days (days 2-5) prednisone 20 mg tablet 60 mg PO DAILY 5 Days Qty: 15 0RF doxycycline monohydrate 100 mg capsule 100 mg PO BID 10 Days Qty: 20 0RF albuterol sulfate 90 mcg/actuation HFA aerosol inhaler 1 inh inhalation QID PRN (Reason: shortness of breath or wheezing) Qty: 8.5 0RF penicillin V potassium 500 mg tablet 500 mg PO QID 7 Days Qty: 28 0RF ibuprofen 400 mg tablet 400 mg PO TID PRN (Reason: fever or pain) Qty: 30 0RF No Action lidocaine 4 % adhesive patch,medicated 1 patch topical DAILY PRN (Reason: pain) Qty: 10 0RF Rx Instructions: may leave on for up to 12 hrs erythromycin 5 mg/gram (0.5 %) ointment 0.5 inch ophthalmic (eye) QID 7 Days Qty: 3.5 0RF Rx Instructions: Both eyes morphine 15 mg tablet 15 mg PO Q8H PRN (Reason: pain) Qty: 10 0RF Rx Instructions: Partial Fill upon patient request. ondansetron 4 mg tablet,disintegrating 4 mg PO Q6-8H PRN (Reason: nausea and vomiting) Qty: 14 0RF Referrals: Teresa Ward MD [Primary Care Provider, Medical] Print Language: Nigerien
[2025-08-16 09:30] VITALS: BP 124/65; PULSE 99; RESP 16; TEMP 36.7; O2SAT 98; BMI 24.1
--- OUTSIDE RECORDS SUMMARY | 2025-08-16 09:46 | XMS_ITS | Encounter Summary ---
Author Organization [facility] Address [address] [place] [address] Phone Care Team Providers Care Head Animal Trainer Name Role Phone Norah aCrr MD Primary Care Provider [phone] Encounter Details Date Type Department Care Team (Late st Contact Info) Description 04/13/2015 Documentation [facility] [place] Family Medicine [address] [place], [place] [id number] Family Medicine, Physician [address] [place] [address] Social History Tobacco Use Types Packs/Day Years Used Date Smoking Tobacco: Never Assessed Comments Unknown Sex and Gender Information Value Date Recorded Sex Assigned at Female 11/25/2019 2:53 PM EDT Legal Sex Female 5:19 PM EDT Gender Identity Female 11/25/2019 2:53 PM EDT Sexual Orientation Straight 03/29/2021 1: 23 PM EDT documented as of this encounter Plan of Treatment Not on file documented as of this encounter Visit Diagnoses Not on filedocumented in this encounter Care Teams Head Animal Trainer Relationship Specialty Start Date End Date Norah Carr MD [address] [place] [phone] PCP - General Pediatrics 08/01/19 03/30/23 documented as of this encounter
--- OUTSIDE RECORDS SUMMARY | 2025-08-16 09:46 | XMS_ITS | Encounter Summary ---
Author Organization [facility] Address [address] [place] [address] Phone Care Team Providers Care Construction Carpenter Name Role Phone Norah Carr MD Primary Care Provider [phone] Encounter Details Date Type Department Care Team (Late st Contact Info) Description 10/31/2016 Documentation [facility] [place] Family Medicine [address] [place], [place] [id number] Family Medicine, Physician [address] [place], [place] [address] Social History Tobacco Use Types Packs/Day Years [...] on filedocumented in this encounter Care Teams Construction Carpenter Relationship Specialty Start Date End Date Norah Carr MD [address] [place] [id number] PCP - General Pediatrics 08/01/19 03/30/23 documented as of this encounter
--- OUTSIDE RECORDS SUMMARY | 2025-08-16 09:46 | XMS_ITS | Encounter Summary ---
Author Organization [facility] Address [address] [place] [phone] Phone Care Team Providers Care Meat Cooler Name Role Phone Norah Carr MD Primary Care Provider Encounter Details Date Type Department Care Team (Late st Contact Info) Description 12/01/2016 Documentation [facility] [place] Family Medicine [address] [place], [place] [phone] Family Medicine, Physician [address] [place], [place] [phone] Social History Tobacco Use Types Packs/Day Years [...] on filedocumented in this encounter Care Teams Meat Cooler Relationship Specialty Start Date End Date Norah Carr MD [address] [place] [phone] PCP - General Pediatrics 08/01/19 03/30/23 documented as of this encounter
--- OUTSIDE RECORDS SUMMARY | 2025-08-16 09:46 | XMS_ITS | Encounter Summary ---
Author Organization [facility] Address [address] [place] [phone] Phone Care Team Providers Care Yarn Sorter Name Role Phone Norah Carr MD Primary Care Provider [phone] Encounter Details Date Type Department Care Team (Late st Contact Info) Description 12/24/2016 Documentation [facility] [place] Family Medicine [address] [place], [place] [phone] Family Medicine, Physician [address] [place], [place] [address] Social History Tobacco Use Types Packs/Day Years [...] on filedocumented in this encounter Care Teams Yarn Sorter Relationship Specialty Start Date End Date Norah Carr MD [address] [place] [phone] PCP - General Pediatrics 08/01/19 03/30/23 documented as of this encounter
--- OUTSIDE RECORDS SUMMARY | 2025-08-16 09:46 | XMS_ITS | Encounter Summary ---
Author Organization [facility] Address [address] [place] [address] Phone Care Team Providers Care Aircraft Engine Mechanic Overhaul Name Role Phone Norah Carr MD Primary Care Provider [phone] Encounter Details Date Type Department Care Team (Late st Contact Info) Description 09/29/2014 Documentation [facility] [place] [address] [place], [place] [phone] Family Medicine, Physician [address] [place] [address] Social History Tobacco Use Types Packs/Day Years [...] on filedocumented in this encounter Care Teams Aircraft Engine Mechanic Overhaul Relationship Specialty Start Date End Date Norah Carr MD [address] [place] [phone] PCP - General Pediatrics 08/01/19 03/30/23 documented as of this encounter
--- OUTSIDE RECORDS SUMMARY | 2025-08-16 09:46 | XMS_ITS | Encounter Summary ---
Author Organization [facility] Address [address] [place] [address] Phone Care Team Providers Care Pathology Technologist Name Role Phone Norah Carr MD Primary Care Provider [phone] Encounter Details Date Type Department Care Team (Late st Contact Info) Description 02/05/2015 Documentation [facility] [place] Medicine [address] [place] [address] Family Medicine, Physician [address] [place] [address] Social History Tobacco Use Types Packs/Day Years [...] on filedocumented in this encounter Care Teams Pathology Technologist Relationship Specialty Start Date End Date Norah Carr MD [address] [place] [phone] PCP - General Pediatrics 08/01/19 03/30/23 documented as of this encounter
--- OUTSIDE RECORDS SUMMARY | 2025-08-16 09:46 | XMS_ITS | Clinical Summary ---
Author Organization [facility] Address [address] [place] [phone] Phone Care Team Providers Care Electronics Technician Name Role Phone Unavailable Primary Care Provider Unavailabl e Allergies Active Allergy Reactions Criticality Noted Date Comments Ipratropium 09/20/2020 Medications valACYclovir 500 MG tablet TAKE 1 TABLET BY MOUTH EVERY 12 HOURS CONTINUSOUSLY 1 05/11/20 17 Active Nebulizers (COMPRESSOR/NEBUL IZER) miscIndications:S evere persistent asthma without complication Use to deliver albuterol as needed. 1 each 11/28/19 18 Active Additional Information Patient not taking.Reported on 07/24/2022 montelukast 10 MG tabletIndications :Severe persistent asthma without complication Take 1 tablet (10 mg total) by mouth every evening. 30 tablet 11 01/20/20 19 Active cetirizine 10 MG tabletIndications :Severe persistent asthma with acute exacerbation Take 1 tablet (10 mg total) by mouth once daily. 30 tablet 6 03/17/20 19 Active Additional Information Patient not taking.Reported on 07/24/2022 predniSONE 1 MG tablet TAKE 2 TABLETS BY MOUTH EVERY OTHER DAY DIRECTED 06/21/20 19 Active budesonide-formot anupama 160-4.5 MCG/ACT inhaler Inhale 2 puffs 2 (two) times a day. Rinse mouth with water after use, do not swallow. Active fluticasone 50 MCG/ACT nasal sprayIndications: Multiple environmental allergies Administer 2 sprays into each nostril daily. 1 Units 11 09/20/19 21 Active Additional Information Patient not taking.Reported on 11/06/2022 albuterol (2.5 MG/3ML) 0.083% nebulizer solutionIndicatio ns:Severe persistent asthma without complication Take 3 mL (2.5 mg total) by nebulization every 4 (four) hours as needed for wheezing or shortness of breath. 1 Package 12/01/19 21 Active Additional Information Patient not taking.Reported on 07/24/2022 omeprazole 20 MG delayed-release capsuleIndication s:Underweight Take 1 capsule (20 mg total) by mouth once daily. 30 capsule 6 03/29/20 21 Active ProAir HFA 108 (90 Base) MCG/ACT inhalerIndication s:Severe persistent asthma dependent on systemic steroids Inhale 2 puffs every 6 (six) hours as needed for wheezing. 1 Units 03/29/20 21 Active Vit-Fe Fumarate-FA ( VITAMIN PO) Take 1 tablet by mouth daily. Active Tezepelumab-ekko 210 MG/1.91ML solution prefilled syringe Inject 210 mcg under the skin every 28 days. 07/23/20 22 Active Active Problems Problem Noted Date Diagnosed Date 07/24/2022 Assessment & Plan (11/06/2022 5:13 PM EDT): Due 11/30, will likely get induced early due to some growth restriction. Rh negative, got Rhogam. Got Tdap. GBS positive, aware of need for antepartum antibiotics. Assessment & Plan (07/26/2022 6:42 PM EST): Has care through [facility] at [facility] due to high risk (severe asthma/ICU admission/pred use). 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 Meanwhile, will follow here with our [facility] Yeimy, who has worked together with Suzanne in past. Feels positive about future today. Assessment & Plan (03/29/2021 1:01 PM EDT): Per Suzanne, her mood is same as it always is and doesn't feel like situational factors contribute to her mood. She is interested in continuing to talk to Saraih, our [facility]. WHO at today's appointment. Assessment & Plan (09/21/2020 4:21 PM EST): Suzanne would like to see Yeimy, our integrated provider, again. She reports that her phone service was cut off prior to her last planned VV, so she was unable to attend visit and unable to notify Yeimy. She has service again and would like to reconnect. Encouraged Suzanne to schedule an appt after our visit was done. HSV infection 10/26/2018 Overview (11/25/2019): She takes daily valacyclovir. Sees Dr. Dorothy Bee annually. Assessment & Plan (11/06/2022 2:32 PM EDT): On Valtrex daily. Sees [facility] for care. Assessment & Plan (03/29/2021 1:07 PM EDT): Continue BID valacyclovir, f/u with Chef German Dr. Bee. No outbreaks. Assessment & Plan (11/25/2019 3:55 PM EDT): Follow up with [facility]. Severe persistent asthma dependent on systemic s teroids 08/08/2016 Overview (07/26/2022): Multiple admissins for asthma requiring ICU care. Required tracheostomy in 2017 which has since been recanulated. Admitted Mar 2018 to PICU and [facility] further management. Treated with BiPAP, terbutaline, aminophyline, prednisone. 09/11 - Home nursing discontinued as insurance felt she was stable. 11/09 - Brief PICU admission for asthma exacerbation. 04/11 - Seen by Dr. Keen for asthma follow-up. She agreed to start Dupixent but insurance did not cover. 11/10 - Still following with Dr. Keen - no admissions over this past year. On chronic steroids, in addition to theophylline, Symbicort, montelukast, albuterol. 09/13 - No significant change from prior. Reports taking all meds. Saw Dr. Keen 08/12 - we don't have this note. She will call him to schedule follow up appt. 08/14 - 22 weeks . S/p ICU admission with ETT and medically-induced coma due to severe life-threatening asthma exacerbation in 06/2022. Trigger was self-d/c of most meds due to her perception that they might not be safe in . Has current understanding re need to stay on meds. Working with Dr Keen on starting a new biologic in the next few weeks Current meds: Pred 1 mg QOD, Singulair, Prilosec, Symbicort 2 puffs BID, Albuterol prn, Flonase. Assessment & Plan (11/06/2022 2:32 PM EDT): Current meds: Tezspire (biologic for asthma), Pred 1 mg QOD, Singulair, Prilosec, Symbicort 2 puffs BID, Albuterol prn, Flonase. Sees Dr. Keen 2-3x/month. Assessment & Plan (07/26/2022 6:38 PM EST): 22 weeks . S/p ICU admission with ETT and medically-induced coma due to severe life-threatening asthma exacerbation in 06/2022. Trigger was self-d/c of most meds due to her perception that they might not be safe in . Has current understanding re need to stay on meds. Working with Dr Keen on starting a new biologic in the next few weeks. F/u with Dr. Keen. Wrote letter for housing re need to address mouse infestation. Assessment & Plan (03/29/2021 1:07 PM EDT): Saw Dr. Keen 2 weeks ago. Stable on current meds: Theophylline, Singulair, Symbicort, Prednisone QOD, omeprazole, Zyrtec, Flonase, albuterol prn. No changes made. F/u with him in 2 months. Plans to get flu shot. Discussed and strongly encouraged COVID vaccine, given her high risk status with severe life- threatening asthma and chronic steroid use. She absolutely refuses COVID vaccination. Not interested in engaging in discussion about it, despite my efforts. Assessment & Plan (09/21/2020 4:18 PM EST): Continue current meds; needs to continue close follow up with Dr. Keen. Also receives assistance from [facility] CHJulia Bennett. Would love to get her off chronic steroids at some point if that is possible. Meanwhile gave new asthma action plan with updated information, encouraged follow up, discussed routine and flare management. Multiple environmental allergies 08/08/2016 Overview (09/21/2020): Maintained on cetirizine and montelukast, as well as Flonase. Assessment & Plan (11/06/2022 2:32 PM EDT): Still on Zyrtec, Flonase, Singulair. Assessment & Plan (03/29/2021 1:09 PM EDT): No changes in management, well managed with cetirizine, montelukast, Flonase. Assessment & Plan (09/21/2020 4:22 PM EST): Renew Flonase, which she is apparently using. Comments Yes Resolved Problems Problem Noted Date Diagnosed Date Resolved Date Need for case management follow-up 11/25/2019 03/29/2021 Overview (11/25/2019): Urine STI screen not done at [facility] due to virtual visit. If not done at [facility], will need to return here for screening. Counseling and coordination of care 11/22/2019 12/09/2022 Assessment & Plan (07/26/2022 6:32 PM EST): [facility] Xenia Bennett and [facility] Estiven Ortega assisting with housing, coordination of care, future education/childcare. Encounters Date Type Department Care Team Description 05/19/2025 Telephone [place] [facility] [place] [address] [place] [address] Sybil Raymond MD Medical Records from Last 3 Months Immunizations Immunization Administration Dates Next Due COVID-19 Moderna, monovalent , 12+ years 04/03/2022 COVID-19 Pfizer, phillip-sucros e, 12+ years 11/06/2022 DTaP 5 06/16/2005, 2,07/05/2001,05/03,02/15/2001 H1N1 07/26/2009,06/27/2009 HPV, Quadrivalent 02/01/2014,12/28/2012,10/28/19 13 Hep A, ped/adol 11/28/2014,02/01/2014 Hep B, ped/adol 10/07/2001,01/19/2001,2000 Hib (PRP-T) 04/12/2002, 1,05/03/2001,02/15 IPV 06/16/2005, 1,05/03/2001,02/15 Influenza Split 05/06/2012,05/07/2011,05/14/2010 Influenza, injectable, quadrivalent 05/21/2016 Influenza, injectable, quadr ivalent, preservative free 05/07/2022,05/20/2020,08/26/2019,10/26,08/05/2017,05/07/2015,06/07/2014 ,06/27/2013 Influenza, injectable, trivalent 009,05/29/2008,07/07/2007,08/05,06/16/2005,06/13/2004,07/14/2002 ,06/16/2002 MMR 06/16/2005,12/28/2001 Meningococcal B Trumenba 05/07/2022,03/29/2021 Meningococcal Conj (Menactra) MCV4P 08/05/2017,0 10/27/2012 Pneumococcal Conjugate 04/25/2003,2000,05/03/2001,02/15 Pneumococcal Polysaccharide 04/12/2018 Tdap 09/16/2022,10/27/2012 Varicella 01/12/2008,04/12/2002 Family History Medical History Relation Name Comments Asthma Brother Koby No Known Problems Father Han Hurst No Known Problems Mother BrendaAgron Relation Name Status Comments Brother Koby Alive Brother: Asthma Father Han Hurst Alive Father: Alive a nd well Maternal Grandfather Materna l grandfather: Hypertension Maternal Grandmother Alive Materna l grandmother: Alive and well Mother Chayito Alive Mother: Asthma Other Family history of *CVA/Stroke, No family history of *Thrombophilia, Family history of *Dental caries, No family history of *Heart Disease Paternal Grandmother Paterna l aunt: Asthma Social History Tobacco Use Types Packs/Day Years Used Date Smoking Tobacco: Never Smokeless Tobacco: Never Tobacco Cessation:Counseling Given: Yes Comments:Never smoker Alcohol Use Standard Drinks/Week Comments Not Currently 0 (1 standard drink = 0.6 oz pur e alcohol) Hunger/Food Answer Date Recorded In the last 12 months, did y ou or your family ever eat less than you felt you should because there wasn't enough money for food? No 11/06/2022 Stable Housing Answer Date Recorded Are you worried that in the next 2 months you may not have stable housing? No 11/06/2022 Transportation Concerns Answer Date Rec orded In the last 12 months, have you or your family ever had to go without healthcare because you didn't have a way to get there? No 11/06/2022 Hazards in Home Answer Date Recorded Think about the place you li ve. Do you have problems with any of the following? Pests (mice or roaches), mold, no/not working smoke detectors, water leaks, no window guards. No 2022 Financing Utilities Answer Date Recorde d In the last 12 months, has t he electric, gas, oil, or water company threatened to shut off your services in your home? No 11/06/2022 Safety at Home Answer Date Recorded Are you or your family worried about feeling saf e in your home? No 11/06/2022 Outside Support Answer Date Recorded Do you feel that you need mo re support from other people or programs to help you care for yourself or your family? No 11/06/2022 Understanding Health Concerns Answer Da te Recorded Do you need help understandi ng your or your child's healthcare needs (diagnosis, medications, plan, etc.)? No 11/06/2022 Financing Health Concerns Answer Date R ecorded In the last 12 months, was t here a time when your child needed to see a doctor or get medications or supplies but could not because of cost? No 11/06/2022 Missing School or Work Answer Date Arturo rded Did you or your child miss s chool or work because of a health problem that could have been avoided? No 11/06/2022 Comments Yes Sex and Gender Information Value Date Recorded Sex Assigned at Female 11/25/2019 2:53 PM EDT Legal Sex Female 5:19 PM EDT Gender Identity Female 11/25/2019 2:53 PM EDT Sexual Orientation Straight 03/29/2021 1: 23 PM EDT Last Filed Vital Signs Vital Sign Reading Time Taken Comments Blood Pressure 125/69 11/06/2022 1:54 PM EDT Pulse 106 11/06/2022 1:54 PM EDT Temperature 37.1 C (98.7 F) 07/24/2022 4:26 PM EST Respiratory Rate 20 12/17/2017 10:54 AM EDT Oxygen Saturation 100% 01/28/2017 12:00 AM EDT Inhaled Oxygen Concentration - - Weight 85.1 kg (187 lb 9.6 oz) 11/06/2022 1:54 P M EDT Height 167.6 cm (5' 6 ) 11/06/2022 1:54 PM EDT Body Mass Index 30.28 11/06/2022 1:54 PM EDT Plan of Treatment Health Maintenance Due Date Last Done Comments HIV Screening 2000 Syphilis Screening (consider for higher risk patients) 02/02/2015 02/02/2014 Influenza Vaccines (#1) 2025 05/07/20, 05/20/2020, 08/26/2019, Additional history exists COVID-19 Vaccine (3 - 2024-2 6 season) 2025 11/06/2022, 04/03/2022 DTaP,Tdap,and Td Vaccines (9 - Td or Tdap) 03/14/2035 03/14/2025, 09/16/2022, 10/27/2012, Additional history exists Hepatitis B Vaccines Completed 10/07/2001, 01/19/2001, 2000 HIB Vaccines Completed 04/12/2002, 06/24, 05/03/2001, Additional history exists IPV Vaccines Completed 06/16/2005, 06/24, 05/03/2001, Additional history exists MMR Vaccines Completed 06/16/2005, 12/28/2001 Varicella Vaccines Completed 01/12/2008, 04/12/2002 HPV Vaccines Completed 02/01/2014, 02/2013, 10/27/2012 Hepatitis A Vaccines Completed 11/28/2014, 02/02/20 14 Meningococcal Vaccine Completed 08/05/2017, 013 Pneumococcal Vaccine Completed 04/12/2018, 04/25/2003, 07/05/2001, Additional history exists Men B Vaccine Completed 05/07/2022, 03/29/2021 Procedures * Due to [place] Eyegroove law, this organization might not be sharing sensitive test results. Procedure Name Priority Date/Time Associated Diagnosis Comments CHLAMYDIA AND GONORRHEA, AMPLIFIED Routine 11/06/2022 3:10 PM EDT Encounter for screening examination for chlamydial infection RPR Routine 02/02/2014 2:42 PM EDT from Last 3 Months or Most Recently Relevant to Health Maintenance Results * Due to [place] Eyegroove law, this organization might not be sharing sensitive test results. * Chlamydia and Gonorrhoea, Amplified (Urine) (11/06/2022 3:10 PM EDT) Pathologist [facility] Chlamydia Trachomatis, DNA Probe NEGATIVE (NEG) [facility] Comment: No Chlamydia Trachomatis RNA detected in this patient's sample (REFERENCE RANGE/NORMAL VALUE: NOT DETECTED) Note: This test uses utility hand- mediated amplification method to detect rRNA from C. Trachomatis URINE GC AMP PROBE NEGATIVE (NEG) [facility] Comment: No Neisseria Gonorrhoeae RNA detected in this patient's sample (REFERENCE RANGE/NORMAL VALUE: NOT DETECTED) NOTE: This test uses utility hand-mediated amplification method to detect rRNA from N.Gonorrhoeae. A negative result does not preclude infection. In the case of a negative urine result, testing of an endocervical(female) or urethral (male) specimen is recommended if there is high clinical suspicion of infection. Due to very high sensitivity of Nucleic Acid Amplification Test, false positive results may occur. Therefore, specimen handling is extremely important. In patients in whom the disease is unlikely, additional sample for testing should be considered after an initial positive result. The performance characteristics of this test have not been evaluated in children. The Aptima Combo2 assay is not intended for the evaluation of suspected sexual abuse or for other medico-legal indications. The ordering provider should assess if the patient had consensual sex without risk of sexual abuse. Consult the [facility] if needed. Contact phone number . Therapeutic failure or success cannot be determined with the Aptima Combo2 assay since nucleic acid may persist following appropriate antimicrobial therapy. The Centers for Disease Control and Prevention (CDC) recommends confirmatory retesting using culture or a different nucleic acid amplification test when positive results occur, if indicated. Testing performed or reported by [facility], a Service of [facility], [address], [place] [address] Julian Johnson MD, Rn [facility]# [id number] Urine (Urine, Random (not clean void)) 11/06/2022 3:10 PM EDT 11/06/2022 6:27 PM EDT us Norah Carr MD LAB MICROBIOLOGY - GENERAL ORDER BENJAMIN Final Result Performing Organization Address [facility]/ZIP Co de Phone Number [facility] * RPR (02/02/2014 2:42 PM EDT) RPR NONREACTIVE (NR) [facility] Comment: Testing performed or reported by [facility], a Service of [facility], [address] [place] [address] Jesus Barroso, Rn [facility] 02/02/2014 2:42 PM EDT [facility] - 02/02/2014 2:42 PM EDT RPR us Pavel Syed MD LAB BLOOD ORDERABLES Final Res ult [facility] [address] [place] [phone], [place] from Last 3 Months or Most Recently Relevant to Health Maintenance
--- OUTSIDE RECORDS SUMMARY | 2025-08-16 09:46 | XMS_ITS | Encounter Summary ---
Author Organization [facility] Address [address] [place] [address] Phone Care Team Providers Care Transportation Superintendent Name Role Phone Norah Carr MD Primary Care Provider [phone] Encounter Details Date Type Department Care Team (Late st Contact Info) Description 11/25/2016 Documentation [facility] [place] [facility] [address] [place], [place] [phone] Family Medicine, Physician [address] [place], [place] [phone] Social History Tobacco Use Types Packs/Day Years [...] on filedocumented in this encounter Care Teams Transportation Superintendent Relationship Specialty Start Date End Date Norah Carr MD [address] [place] [phone] PCP - General Pediatrics 08/01/19 03/30/23 documented as of this encounter
--- OUTSIDE RECORDS SUMMARY | 2025-08-16 09:46 | XMS_ITS | Encounter Summary ---
Author Organization [facility] Address [address] [place] [address] Phone Care Team Providers Care Wallpaper Printer Name Role Phone Norah Carr MD Primary Care Provider [phone] Encounter Details Date Type Department Care Team (Late st Contact Info) Description 11/26/2016 Documentation [facility] [place] [address] [place], [place] [phone] Family Medicine, Physician [address] [place], [place] [address] Social History Tobacco Use Types Packs/Day Years [...] on filedocumented in this encounter Care Teams Wallpaper Printer Relationship Specialty Start Date End Date Norah Carr MD [address] [place] [phone] PCP - General Pediatrics 08/01/19 03/30/23 documented as of this encounter
--- OUTSIDE RECORDS SUMMARY | 2025-08-16 09:46 | XMS_ITS | Encounter Summary ---
Author Organization [facility] Address [address] [place] [phone] Phone Care Team Providers Care Swatch Clerk Name Role Phone Norah Carr MD Primary Care Provider [phone] Encounter Details Date Type Department Care Team (Late st Contact Info) Description 12/04/2016 Documentation [facility] [place] Medicine [address] [place], [place] [phone] Family Medicine, Physician [address] [place], [place] [address] Social History Tobacco Use Types Packs/Day Years [...] on filedocumented in this encounter Care Teams Swatch Clerk Relationship Specialty Start Date End Date Norah Carr MD [address] [place] [address] PCP - General Pediatrics 08/01/19 03/30/23 documented as of this encounter
--- OUTSIDE RECORDS SUMMARY | 2025-08-16 09:46 | XMS_ITS | Encounter Summary ---
Author Organization [facility] Address [address] [place] [address] Phone Care Team Providers Care Maintenance Shop Technician Name Role Phone Norah Carr MD Primary Care Provider [phone] Encounter Details Date Type Department Care Team (Late st Contact Info) Description 04/16/2015 Documentation [facility] [place] [address] [place], [place] [phone] Family Medicine, Physician [address] [place], [place] [phone] Social History Tobacco Use Types Packs/Day Years [...] on filedocumented in this encounter Care Teams Maintenance Shop Technician Relationship Specialty Start Date End Date Norah Carr MD [address] [place] [phone] PCP - General Pediatrics 08/01/19 03/30/23 documented as of this encounter
--- OUTSIDE RECORDS SUMMARY | 2025-08-16 09:46 | XMS_ITS | Encounter Summary ---
Author Organization [facility] Address [address] [place] [address] Phone Care Team Providers Care Fire Hydrant Mechanic Name Role Phone Norah Carr MD Primary Care Provider [phone] Encounter Details Date Type Department Care Team (Late st Contact Info) Description 05/08/2015 Documentation [facility] [place] Medicine [address] [place], [place] [phone] Family Medicine, Physician [address] [place], [place] [phone] Social History Tobacco Use Types Packs/Day Years [...] on filedocumented in this encounter Care Teams Fire Hydrant Mechanic Relationship Specialty Start Date End Date Norah Carr MD [address] [place] [phone] PCP - General Pediatrics 08/01/19 03/30/23 documented as of this encounter
--- OUTSIDE RECORDS SUMMARY | 2025-08-16 09:46 | XMS_ITS | Encounter Summary ---
Author Organization [facility] Address [address] [place] [address] Phone Care Team Providers Care Lock Fitter Name Role Phone Norah Carr MD Primary Care Provider [phone] Encounter Details Date Type Department Care Team (Late st Contact Info) Description 05/08/2015 [place]ation [facility] [place] [address] [place], [place] [phone] Family Medicine, Physician [address] [place], [place] [address] Social History Tobacco Use Types Packs/Day Years [...] on filedocumented in this encounter Care Teams Lock Fitter Relationship Specialty Start Date End Date Norah Carr MD [address] [place] [phone] PCP - General Pediatrics 08/01/19 03/30/23 documented as of this encounter
--- OUTSIDE RECORDS SUMMARY | 2025-08-16 09:46 | XMS_ITS | Encounter Summary ---
Author Organization [facility] Address [address] [place] [address] Phone Care Team Providers Care Office Cleaner Name Role Phone Norah Carr MD Primary Care Provider [phone] Encounter Details Date Type Department Care Team (Late st Contact Info) Description 10/17/2016 Documentation [facility] [place] [address] [place], [place] [phone] Family Medicine, Physician [address] [place], [place] [address] Social History Tobacco Use Types Packs/Day Years [...] on filedocumented in this encounter Care Teams Office Cleaner Relationship Specialty Start Date End Date Norah Carr MD [address] [place] [phone] PCP - General Pediatrics 08/01/19 03/30/23 documented as of this encounter
--- OUTSIDE RECORDS SUMMARY | 2025-08-16 09:46 | XMS_ITS | Clinical Summary ---
Author Organization [facility] Address [address] [place] [address] Phone Care Team Providers Care Energy Conservation Technician Name Role Phone Pavel Syed MD Primary Care Provider Pavel Syed MD Unavailable [phone] Pavel Syed MD Unavailable Social History Tobacco Use Types Packs/Day Years Used Date Smoking Tobacco: Never Assessed Comments Unknown Sex and Gender Information Value Date Recorded Sex Assigned at Not on file Legal Sex Female 1:37 AM EDT Gender Identity Not on file Sexual Orientation Not on file Plan of Treatment Not on file Care Teams Energy Conservation Technician Relationship Specialty Start Date End Date Pavel Syed MD [address] [place] [address] PCP - General 03/31/18 Pavel Syed MD [address] [place] [address] PCP - Insurance PCP 03/31/18 Pavel Syed MD [address] [place] [address] PCP - Clinical PCP 03/31/18
--- OUTSIDE RECORDS SUMMARY | 2025-08-16 09:46 | XMS_ITS | Encounter Summary ---
Author Organization [facility] Address [address] [place] [address] Phone Care Team Providers Care Laser Specialist Name Role Phone Norah Carr MD Primary Care Provider [phone] Encounter Details Date Type Department Care Team (Late st Contact Info) Description 04/09/2017 [place]ation [facility] [place] [address] [place] [address] Family Medicine, Physician [address] [place] [address] Social History Tobacco Use Types Packs/Day Years Used Date Smoking Tobacco: Never Comments:Never smoker Comments Unknown Sex and Gender Information Value [...] on filedocumented in this encounter Care Teams Laser Specialist Relationship Specialty Start Date End Date Norah Carr MD [address] [place] [address] PCP - General Pediatrics 08/01/19 03/30/23 documented as of this encounter
--- OUTSIDE RECORDS SUMMARY | 2025-08-16 09:46 | XMS_ITS | Encounter Summary ---
Author Organization [facility] Address [address] [place] [address] Phone Care Team Providers Care Funeral Home Attendant Name Role Phone Norah Carr MD Primary Care Provider [phone] Encounter Details Date Type Department Care Team (Late st Contact Info) Description 11/25/2016 Documentation [facility] [place] [address] [place], [place] [id number] Family Medicine, Physician [address] [place], [place] 414501 Social History Tobacco Use Types Packs/Day Years [...] on filedocumented in this encounter Care Teams Funeral Home Attendant Relationship Specialty Start Date End Date Norah Carr MD [address] [place] [address] PCP - General Pediatrics 08/01/19 03/30/23 documented as of this encounter
--- OUTSIDE RECORDS SUMMARY | 2025-08-16 09:46 | XMS_ITS | Encounter Summary ---
Author Organization [facility] Address [address] [place] [address] Phone Care Team Providers Care Policy Writer Name Role Phone Norah Carr MD Primary Care Provider [phone] Encounter Details Date Type Department Care Team (Late st Contact Info) Description 10/30/2016 [place]ation [facility] [place] [facility] [place] [address] [place], [place] [phone] Family Medicine, Physician [address] [place], [place] 045181 Social History Tobacco Use Types Packs/Day Years [...] on filedocumented in this encounter Care Teams Policy Writer Relationship Specialty Start Date End Date Norah Carr MD [address] [place] [address] PCP - General Pediatrics 08/01/19 03/30/23 documented as of this encounter
--- OUTSIDE RECORDS SUMMARY | 2025-08-16 09:46 | XMS_ITS | Encounter Summary ---
Author Organization [facility] Address [address] [place] [address] Phone Care Team Providers Care Respiratory Medicine Physician Name Role Phone Norah Carr MD Primary Care Provider [phone] Encounter Details Date Type Department Care Team (Late st Contact Info) Description 05/08/2015 [place]ation [facility] [place] [address] [place], [place] 8583093 Family Medicine, Physician [address] [place], [place] 360841 Social History Tobacco Use Types Packs/Day Years [...] on filedocumented in this encounter Care Teams Respiratory Medicine Physician Relationship Specialty Start Date End Date Norah Carr MD [address] [place] [address] PCP - General Pediatrics 08/01/19 03/30/23 documented as of this encounter
--- OUTSIDE RECORDS SUMMARY | 2025-08-16 09:46 | XMS_ITS | Encounter Summary ---
Author Organization [facility] Address [address] [place] [address] Phone Care Team Providers Care Machine Hand Name Role Phone Norah Carr MD Primary Care Provider [phone] Encounter Details Date Type Department Care Team (Late st Contact Info) Description 11/25/2016 Documentation [facility] [place] [address] [place], [place] 9444193 Family Medicine, Physician [address] [place], [place] 397101 Social History Tobacco Use Types Packs/Day Years [...] on filedocumented in this encounter Care Teams Machine Hand Relationship Specialty Start Date End Date Norah Carr MD [address] [place] [address] PCP - General Pediatrics 08/01/19 03/30/23 documented as of this encounter
--- OUTSIDE RECORDS SUMMARY | 2025-08-16 09:46 | XMS_ITS | Encounter Summary ---
Author Organization [facility] Address [address] [place] [address] Phone Care Team Providers Care Corn Husker Machine Operator Name Role Phone Norah Carr MD Primary Care Provider [phone] Encounter Details Date Type Department Care Team (Late st Contact Info) Description 11/25/2016 Documentation [facility] [place] [address] [place], [place] 1210593 Family Medicine, Physician [address] [place], [place] 939421 Social History Tobacco Use Types Packs/Day Years [...] on filedocumented in this encounter Care Teams Corn Husker Machine Operator Relationship Specialty Start Date End Date Norah Carr MD [address] [place] [address] PCP - General Pediatrics 08/01/19 03/30/23 documented as of this encounter
--- OUTSIDE RECORDS SUMMARY | 2025-08-16 09:47 | XMS_ITS | Encounter Summary ---
Author Organization [facility] Address [address] [place] [address] Phone Care Team Providers Care Burner Technician Name Role Phone Norah Carr MD Primary Care Provider [phone] Encounter Details Date Type Department Care Team (Late st Contact Info) Description 03/13/2017 Documentation [facility] [place] [address] [place] [address] Family Medicine, Physician [address] [place] [address] Social History Tobacco Use Types Packs/Day Years [...] on filedocumented in this encounter Care Teams Burner Technician Relationship Specialty Start Date End Date Norah Carr MD [address] [place] [address] PCP - General Pediatrics 08/01/19 03/30/23 documented as of this encounter
--- OUTSIDE RECORDS SUMMARY | 2025-08-16 09:47 | XMS_ITS | Encounter Summary ---
Author Organization [facility] Address [address] [place] [address] Phone Care Team Providers Care Dot Net Developer Name Role Phone Norah Carr MD Primary Care Provider [phone] Encounter Details Date Type Department Care Team (Late st Contact Info) Description 05/08/2016 Documentation [facility] [place] [address] [place], [place] 9097893 Family Medicine, Physician [address] [place], [place] 617371 Social History Tobacco Use Types Packs/Day Years [...] on filedocumented in this encounter Care Teams Dot Net Developer Relationship Specialty Start Date End Date Norah Carr MD [address] [place] [address] PCP - General Pediatrics 08/01/19 03/30/23 documented as of this encounter
--- OUTSIDE RECORDS SUMMARY | 2025-08-16 09:47 | XMS_ITS | Encounter Summary ---
Author Organization [facility] Address [address] [place] [address] Phone Care Team Providers Care Hydraulic Rubbish Compactor Mechanic Name Role Phone Norah Carr MD Primary Care Provider [phone] Encounter Details Date Type Department Care Team (Late st Contact Info) Description 02/18/2010 Documentation [facility] [place] [address] [place], [place] 0298993 Family Medicine, Physician [address] [place], [place] 392391 Social History Tobacco Use Types Packs/Day Years [...] on filedocumented in this encounter Care Teams Hydraulic Rubbish Compactor Mechanic Relationship Specialty Start Date End Date Norah Carr MD [address] [place] [address] PCP - General Pediatrics 08/01/19 03/30/23 documented as of this encounter
--- OUTSIDE RECORDS SUMMARY | 2025-08-16 09:47 | XMS_ITS | Encounter Summary ---
Author Organization [facility] Address [address] [place] [address] Phone Care Team Providers Care Biology Tutor Name Role Phone Norah Carr MD Primary Care Provider [phone] Encounter Details Date Type Department Care Team (Late st Contact Info) Description 05/08/2016 Documentation [facility] [place] [address] [place], [place] 7695393 Family Medicine, Physician [address] [place], [place] 026651 Social History Tobacco Use Types Packs/Day Years [...] on filedocumented in this encounter Care Teams Biology Tutor Relationship Specialty Start Date End Date Norah Carr MD [address] [place] [address] PCP - General Pediatrics 08/01/19 03/30/23 documented as of this encounter
--- OUTSIDE RECORDS SUMMARY | 2025-08-16 09:47 | XMS_ITS | Encounter Summary ---
Author Organization [facility] Address [address] [place] [address] Phone Care Team Providers Care Check Writing Machine Operator Name Role Phone Norah Carr MD Primary Care Provider [phone] Encounter Details Date Type Department Care Team (Late st Contact Info) Description 05/08/[address] [facility] [place] [address] [place], [place] 1884893 Family Medicine, Physician [address] [place], [place] 906871 Social History Tobacco Use Types Packs/Day Years [...] on filedocumented in this encounter Care Teams Check Writing Machine Operator Relationship Specialty Start Date End Date Norah Carr MD [address] [place] [address] PCP - General Pediatrics 08/01/19 03/30/23 documented as of this encounter
--- OUTSIDE RECORDS SUMMARY | 2025-08-16 09:47 | XMS_ITS | Encounter Summary ---
Author Organization [facility] Address [address] [place] [address] Phone Care Team Providers Care Bottle Carrier Name Role Phone Norah Carr MD Primary Care Provider [phone] Encounter Details Date Type Department Care Team (Late st Contact Info) Description 11/13/2015 Documentation [facility] [place] [address] [place], [place] 8061193 Family Medicine, Physician [address] [place], [place] 326941 Social History Tobacco Use Types Packs/Day Years [...] on filedocumented in this encounter Care Teams Bottle Carrier Relationship Specialty Start Date End Date Norah Carr MD [address] [place] [address] PCP - General Pediatrics 08/01/19 03/30/23 documented as of this encounter
--- OUTSIDE RECORDS SUMMARY | 2025-08-16 09:47 | XMS_ITS | Encounter Summary ---
Author Organization [facility] Address [address] [place] [address] Phone Care Team Providers Care Broadcast Maintenance Technician Name Role Phone Norah Carr MD Primary Care Provider [phone] Encounter Details Date Type Department Care Team (Late st Contact Info) Description 05/08/[address] [facility] [place] [address] [place], [place] 1216993 Family Medicine, Physician [address] [place], [place] 262611 Social History Tobacco Use Types Packs/Day Years [...] on filedocumented in this encounter Care Teams Broadcast Maintenance Technician Relationship Specialty Start Date End Date Norah Carr MD [address] [place] [address] PCP - General Pediatrics 08/01/19 03/30/23 documented as of this encounter
--- OUTSIDE RECORDS SUMMARY | 2025-08-16 09:47 | XMS_ITS | Encounter Summary ---
Author Organization [facility] Address [address] [place] [address] Phone Care Team Providers Care Plant Health Care Technician Name Role Phone Norah Carr MD Primary Care Provider [phone] Encounter Details Date Type Department Care Team (Late st Contact Info) Description 07/04/2013 Documentation [facility] [place] [address] [place], [place] 5232293 Family Medicine, Physician [address] [place], [place] 089351 Social History Tobacco Use Types Packs/Day Years [...] on filedocumented in this encounter Care Teams Plant Health Care Technician Relationship Specialty Start Date End Date Norah Carr MD [address] [place] [address] PCP - General Pediatrics 08/01/19 03/30/23 documented as of this encounter
--- OUTSIDE RECORDS SUMMARY | 2025-08-16 09:47 | XMS_ITS | Encounter Summary ---
Author Organization [facility] Address [address] [place] [address] Phone Care Team Providers Care Business Support Associate Name Role Phone Norah Carr MD Primary Care Provider [phone] Encounter Details Date Type Department Care Team (Late st Contact Info) Description 10/19/2013 Documentation [facility] [place] [address] [place], [place] 4410393 Family Medicine, Physician [address] [place] [address] Social History Tobacco Use Types Packs/Day Years [...] on filedocumented in this encounter Care Teams Business Support Associate Relationship Specialty Start Date End Date Norah Carr MD [address] [place] [address] PCP - General Pediatrics 08/01/19 03/30/23 documented as of this encounter
--- OUTSIDE RECORDS SUMMARY | 2025-08-16 09:47 | XMS_ITS | Encounter Summary ---
Author Organization [facility] Address [address] [place] [address] Phone Care Team Providers Care Curator Name Role Phone Norah Carr MD Primary Care Provider [phone] Encounter Details Date Type Department Care Team (Late st Contact Info) Description 05/31/2015 [place]ation [facility] [place] [address] [place] [address] Family Medicine, Physician [address] [place] [address] Social History Tobacco Use Types Packs/Day Years [...] on filedocumented in this encounter Care Teams Curator Relationship Specialty Start Date End Date Norah Carr MD [address] [place] [address] PCP - General Pediatrics 08/01/19 03/30/23 documented as of this encounter
--- OUTSIDE RECORDS SUMMARY | 2025-08-16 09:47 | XMS_ITS | Encounter Summary ---
Author Organization [facility] Address [address] [place] [address] Phone Care Team Providers Care Freelance Director Name Role Phone Norah Carr MD Primary Care Provider [phone] Encounter Details Date Type Department Care Team (Late st Contact Info) Description 10/26/2013 Documentation [facility] [place] [address] [place], [place] 2914593 Family Medicine, Physician [address] [place], [place] 031561 Social History Tobacco Use Types Packs/Day Years [...] on filedocumented in this encounter Care Teams Freelance Director Relationship Specialty Start Date End Date Norah Carr MD [address] [place] [address] PCP - General Pediatrics 08/01/19 03/30/23 documented as of this encounter
--- OUTSIDE RECORDS SUMMARY | 2025-08-16 09:47 | XMS_ITS | Encounter Summary ---
Author Organization [facility] Address [address] [place] [address] Phone Care Team Providers Care Commodities Clerk Name Role Phone Norah Carr MD Primary Care Provider [phone] Encounter Details Date Type Department Care Team (Late st Contact Info) Description 11/12/2015 Documentation [facility] [place] [address] [place], [place] 4386293 Family Medicine, Physician [address] [place], [place] 708191 Social History Tobacco Use Types Packs/Day Years [...] on filedocumented in this encounter Care Teams Commodities Clerk Relationship Specialty Start Date End Date Norah Carr MD [address] [place] [address] PCP - General Pediatrics 08/01/19 03/30/23 documented as of this encounter
--- OUTSIDE RECORDS SUMMARY | 2025-08-16 09:47 | XMS_ITS | Encounter Summary ---
Author Organization [facility] Address [address] [place] [address] Phone Care Team Providers Care Wholesaler Name Role Phone Norah Carr MD Primary Care Provider [phone] Encounter Details Date Type Department Care Team (Late st Contact Info) Description 11/12/2015 [place]ation [facility] [place] [address] [place], [place] 2765393 Family Medicine, Physician [address] [place], [place] 679651 Social History Tobacco Use Types Packs/Day Years [...] on filedocumented in this encounter Care Teams Wholesaler Relationship Specialty Start Date End Date Norah Carr MD [address] [place] [address] PCP - General Pediatrics 08/01/19 03/30/23 documented as of this encounter
--- OUTSIDE RECORDS SUMMARY | 2025-08-16 09:47 | XMS_ITS | Encounter Summary ---
Author Organization [facility] Address [address] [place] [address] Phone Care Team Providers Care Child Care Team Lead Name Role Phone Norah Carr MD Primary Care Provider [phone] Encounter Details Date Type Department Care Team (Late st Contact Info) Description 10/28/2012 [place] [facility] [place] [address] [place], [place] 1828793 Family Medicine, Physician [address] [place], [place] 617021 Social History Tobacco Use Types Packs/Day Years [...] on filedocumented in this encounter Care Teams Child Care Team Lead Relationship Specialty Start Date End Date Norah Carr MD [address] [place] [address] PCP - General Pediatrics 08/01/19 03/30/23 documented as of this encounter
--- OUTSIDE RECORDS SUMMARY | 2025-08-16 09:47 | XMS_ITS | Encounter Summary ---
Author Organization [facility] Address [address] [place] [address] Phone Care Team Providers Care Bottle Sorter Name Role Phone Norah Carr MD Primary Care Provider [phone] Encounter Details Date Type Department Care Team (Late st Contact Info) Description 05/18/2015 Documentation [facility] [place] [address] [place], [place] 6241793 Family Medicine, Physician [address] [place], [place] 492791 Social History Tobacco Use Types Packs/Day Years [...] filedocumented in this encounter Care Teams Bottle Sorter Relationship Specialty Start Date End Date Norah Carr MD [address] [place] [address] PCP - General Pediatrics 08/01/19 03/30/23 documented as of this encounter
--- OUTSIDE RECORDS SUMMARY | 2025-08-16 09:47 | XMS_ITS | Encounter Summary ---
Author Organization [facility] Address [address] [place] [address] Phone Care Team Providers Care Cabinet Finisher Name Role Phone Norah Carr MD Primary Care Provider [phone] Encounter Details Date Type Department Care Team (Late st Contact Info) Description 03/29/2010 Documentation [facility] [place] Family [place] [address] [place], [place] 4473793 Family Medicine, Physician [address] [place], [place] 701971 Social History Tobacco Use Types Packs/Day Years [...] on filedocumented in this encounter Care Teams Cabinet Finisher Relationship Specialty Start Date End Date Norah Carr MD [address] [place] [address] PCP - General Pediatrics 08/01/19 03/30/23 documented as of this encounter
--- OUTSIDE RECORDS SUMMARY | 2025-08-16 09:47 | XMS_ITS | Encounter Summary ---
Author Organization [facility] Address [address] [place] [address] Phone Care Team Providers Care Senior Firmware Engineer Name Role Phone Norah Carr MD Primary Care Provider [phone] Encounter Details Date Type Department Care Team (Late st Contact Info) Description 05/31/2015 Documentation [facility] [place] [address] [place] [address] Family Medicine, Physician [address] [place] [address] Social History Tobacco Use Types Packs/Day Years [...] on filedocumented in this encounter Care Teams Senior Firmware Engineer Relationship Specialty Start Date End Date Norah Carr MD [address] [place] [address] PCP - General Pediatrics 08/01/19 03/30/23 documented as of this encounter
--- OUTSIDE RECORDS SUMMARY | 2025-08-16 09:47 | XMS_ITS | Encounter Summary ---
Author Organization [facility] Address [address] [place] [address] Phone Care Team Providers Care Beef Lugger Name Role Phone Norah Carr MD Primary Care Provider Encounter Details Date Type Department Care Team (Late st Contact Info) Description 05/08/2016 Documentation [facility] [place] [address] [place], [place] 1025993 Family Medicine, Physician [address] [place], [place] 766591 Social History Tobacco Use Types Packs/Day Years [...] on filedocumented in this encounter Care Teams Beef Lugger Relationship Specialty Start Date End Date Norah Carr MD [address] [place] [address] PCP - General Pediatrics 08/01/19 03/30/23 documented as of this encounter
--- OUTSIDE RECORDS SUMMARY | 2025-08-16 09:47 | XMS_ITS | Encounter Summary ---
Author Organization [facility] Address [address] [place] [address] Phone Care Team Providers Care Optical Manufacturing Technician Name Role Phone Norah Carr MD Primary Care Provider [phone] Encounter Details Date Type Department Care Team (Late st Contact Info) Description 01/18/2015 Documentation [facility] [place] [address] [place], [place] 8385893 Family Medicine, Physician [address] [place] [address] Social History Tobacco Use Types Packs/Day Years [...] on filedocumented in this encounter Care Teams Optical Manufacturing Technician Relationship Specialty Start Date End Date Norah Carr MD [address] [place] [address] PCP - General Pediatrics 08/01/19 03/30/23 documented as of this encounter
--- OUTSIDE RECORDS SUMMARY | 2025-08-16 09:47 | XMS_ITS | Encounter Summary ---
Author Organization [facility] Address [address] [place] [address] Phone Care Team Providers Care Parcel Post Order Clerk Name Role Phone Norah Carr MD Primary Care Provider [phone] Encounter Details Date Type Department Care Team (Late st Contact Info) Description 01/28/2016 Documentation [facility] [place] [address] [place], [place] 4070593 Family Medicine, Physician [address] [place], [place] 180711 Social History Tobacco Use Types Packs/Day Years [...] on filedocumented in this encounter Care Teams Parcel Post Order Clerk Relationship Specialty Start Date End Date Norah Carr MD [address] [place] [address] PCP - General Pediatrics 08/01/19 03/30/23 documented as of this encounter
--- OUTSIDE RECORDS SUMMARY | 2025-08-16 09:47 | XMS_ITS | Encounter Summary ---
Author Organization [facility] Address [address] [place] [address] Phone Care Team Providers Care Kick Press Operator Name Role Phone Norah Carr MD Primary Care Provider [phone] Encounter Details Date Type Department Care Team (Late st Contact Info) Description 04/09/2017 Conversion Encounter [facility] [address] [place] [address] Social History Tobacco Use Types Packs/Day Years [...] on filedocumented in this encounter Care Teams Kick Press Operator Relationship Specialty Start Date End Date Norah Carr MD [address] [place] [address] PCP - General Pediatrics 08/01/19 03/30/23 documented as of this encounter
--- OUTSIDE RECORDS SUMMARY | 2025-08-16 09:47 | XMS_ITS | Encounter Summary ---
Author Organization [facility] Address [address] [place] [address] Phone Care Team Providers Care Make Up Operator Name Role Phone Norah Carr MD Primary Care Provider Encounter Details Date Type Department Care Team (Late st Contact Info) Description 01/27/2017 Documentation [facility] [place] [address] [place], [place] [phone] Family Medicine, Physician [address] [place], [place] 465301 Social History Tobacco Use Types Packs/Day Years [...] on filedocumented in this encounter Care Teams Make Up Operator Relationship Specialty Start Date End Date Norah Carr MD [address] [place] [address] PCP - General Pediatrics 08/01/19 03/30/23 documented as of this encounter
--- OUTSIDE RECORDS SUMMARY | 2025-08-16 09:47 | XMS_ITS | Encounter Summary ---
Author Organization [facility] Address [address] [place] [address] Phone Care Team Providers Care Hand Trimmer Name Role Phone Norah Carr MD Primary Care Provider [phone] Encounter Details Date Type Department Care Team (Late st Contact Info) Description 01/05/2015 Documentation [facility] [place] [address] [place], [place] [id number] Family Medicine, Physician [address] [place] [address] Social History Tobacco Use Types Packs/Day Years [...] on filedocumented in this encounter Care Teams Hand Trimmer Relationship Specialty Start Date End Date Norah Carr MD [address] [place] [address] PCP - General Pediatrics 08/01/19 03/30/23 documented as of this encounter
--- OUTSIDE RECORDS SUMMARY | 2025-08-16 09:47 | XMS_ITS | Encounter Summary ---
Author Organization [facility] Address [address] [place] [address] Phone Care Team Providers Care Production Control Technologist Name Role Phone Norah Carr MD Primary Care Provider [phone] Encounter Details Date Type Department Care Team (Late st Contact Info) Description 02/18/2010 Documentation [facility] [place] [address] [place], [place] [phone] Family Medicine, Physician [address] [place], [place] 036231 Social History Tobacco Use Types Packs/Day Years [...] on filedocumented in this encounter Care Teams Production Control Technologist Relationship Specialty Start Date End Date Norah Carr MD [address] [place] [address] PCP - General Pediatrics 08/01/19 03/30/23 documented as of this encounter
--- OUTSIDE RECORDS SUMMARY | 2025-08-16 09:47 | XMS_ITS | Encounter Summary ---
Author Organization [facility] Address [address] [place] [address] Phone Care Team Providers Care Order Dispatcher Name Role Phone Norah Carr MD Primary Care Provider [phone] Encounter Details Date Type Department Care Team (Late st Contact Info) Description 02/28/2016 Documentation [facility] [place] [address] [place], [place] [phone] Family Medicine, Physician [address] [place], [place] 107521 Social History Tobacco Use Types Packs/Day Years [...] on filedocumented in this encounter Care Teams Order Dispatcher Relationship Specialty Start Date End Date Norah Carr MD [address] [place] [address] PCP - General Pediatrics 08/01/19 03/30/23 documented as of this encounter
--- OUTSIDE RECORDS SUMMARY | 2025-08-16 09:47 | XMS_ITS | Encounter Summary ---
Author Organization [facility] Address [address] [place] [address] Phone Care Team Providers Care Fisher Lampara Net Name Role Phone Norah Carr MD Primary Care Provider [phone] Encounter Details Date Type Department Care Team (Late st Contact Info) Description 05/08/2016 Documentation [facility] [place] [address] [place], [place] 8855193 Family Medicine, Physician [address] [place], [place] 782821 Social History Tobacco Use Types Packs/Day Years [...] on filedocumented in this encounter Care Teams Fisher Lampara Net Relationship Specialty Start Date End Date Norah Carr MD [address] [place] [address] PCP - General Pediatrics 08/01/19 03/30/23 documented as of this encounter
--- OUTSIDE RECORDS SUMMARY | 2025-08-16 09:47 | XMS_ITS | Encounter Summary ---
Author Organization [facility] Address [address] [place] [address] Phone Care Team Providers Care Setter Juice Packaging Machines Name Role Phone Norah Carr MD Primary Care Provider [phone] Encounter Details Date Type Department Care Team (Late st Contact Info) Description 05/08/2015 Documentation [facility] [place] [address] [place], [place] 6304693 Family Medicine, Physician [address] [place], [place] 019581 Social History Tobacco Use Types Packs/Day Years [...] on filedocumented in this encounter Care Teams Setter Juice Packaging Machines Relationship Specialty Start Date End Date Norah Carr MD [address] [place] [address] PCP - General Pediatrics 08/01/19 03/30/23 documented as of this encounter
--- OUTSIDE RECORDS SUMMARY | 2025-08-16 09:47 | XMS_ITS | Encounter Summary ---
Author Organization [facility] Address [address] [place] [address] Phone Care Team Providers Care Senior Associate Name Role Phone Norah Carr MD Primary Care Provider [phone] Encounter Details Date Type Department Care Team (Late st Contact Info) Description 01/26/2014 Documentation [facility] [place] [address] [place], [place] [phone] Family Medicine, Physician [address] [place], [place] 895371 Social History Tobacco Use Types Packs/Day Years [...] filedocumented in this encounter Care Teams Senior Associate Relationship Specialty Start Date End Date Norah Carr MD [address] [place] [address] PCP - General Pediatrics 08/01/19 03/30/23 documented as of this encounter
--- OUTSIDE RECORDS SUMMARY | 2025-08-16 09:47 | XMS_ITS | Encounter Summary ---
Author Organization [facility] Address [address] [place] [address] Phone Care Team Providers Care Manager Math Name Role Phone Norah Carr MD Primary Care Provider [phone] Encounter Details Date Type Department Care Team (Late st Contact Info) Description 08/10/2013 Documentation [facility] [place] [address] [place] [address] Family Medicine, Physician [address] [place], [place] 048811 Social History Tobacco Use Types Packs/Day Years [...] on filedocumented in this encounter Care Teams Manager Math Relationship Specialty Start Date End Date Norah Carr MD [address] [place] [address] PCP - General Pediatrics 08/01/19 03/30/23 documented as of this encounter
--- OUTSIDE RECORDS SUMMARY | 2025-08-16 09:47 | XMS_ITS | Encounter Summary ---
Author Organization [facility] Address [address] [place] [address] Phone Care Team Providers Care Real Estate Appraiser Supervisor Name Role Phone Norah Carr MD Primary Care Provider [phone] Encounter Details Date Type Department Care Team (Late st Contact Info) Description 05/08/2016 Documentation [facility] [place] [address] [place], [place] 1630393 Family Medicine, Physician [address] [place], [place] 318781 Social History Tobacco Use Types Packs/Day Years [...] on filedocumented in this encounter Care Teams Real Estate Appraiser Supervisor Relationship Specialty Start Date End Date Norah Carr MD [address] [place] [address] PCP - General Pediatrics 08/01/19 03/30/23 documented as of this encounter
--- OUTSIDE RECORDS SUMMARY | 2025-08-16 09:47 | XMS_ITS | Encounter Summary ---
Author Organization [facility] Address [address] [place] [address] Phone Care Team Providers Care Emergency Worker Name Role Phone Norah Carr MD Primary Care Provider [phone] Encounter Details Date Type Department Care Team (Late st Contact Info) Description 03/13/2017 Documentation [facility] [place] [address] [place] [address] Family Medicine, Physician [address] [place] [address] Social History Tobacco Use Types Packs/Day Years [...] on filedocumented in this encounter Care Teams Emergency Worker Relationship Specialty Start Date End Date Norah Carr MD [address] [place] [address] PCP - General Pediatrics 08/01/19 03/30/23 documented as of this encounter
--- OUTSIDE RECORDS SUMMARY | 2025-08-16 09:47 | XMS_ITS | Encounter Summary ---
Author Organization [facility] Address [address] [place] [address] Phone Care Team Providers Care Instructor Trainer Canine Service Name Role Phone Norah Carr MD Primary Care Provider [phone] Encounter Details Date Type Department Care Team (Late st Contact Info) Description 01/11/2010 Documentation [facility] [place] [address] [place], [place] 1327493 Family Medicine, Physician [address] [place], [place] 172651 Social History Tobacco Use Types Packs/Day Years [...] on filedocumented in this encounter Care Teams Instructor Trainer Canine Service Relationship Specialty Start Date End Date Norah Carr MD [address] [place] [address] PCP - General Pediatrics 08/01/19 03/30/23 documented as of this encounter
--- OUTSIDE RECORDS SUMMARY | 2025-08-16 09:47 | XMS_ITS | Encounter Summary ---
Author Organization [facility] Address [address] [place] [address] Phone Care Team Providers Care Geology Scientist Name Role Phone Norah Carr MD Primary Care Provider [phone] Encounter Details Date Type Department Care Team (Late st Contact Info) Description 05/08/2016 Documentation [facility] [place] [address] [place], [place] 6282293 Family Medicine, Physician [address] [place], [place] 936291 Social History Tobacco Use Types Packs/Day Years [...] on filedocumented in this encounter Care Teams Geology Scientist Relationship Specialty Start Date End Date Norah Carr MD [address] [place] [address] PCP - General Pediatrics 08/01/19 03/30/23 documented as of this encounter
--- OUTSIDE RECORDS SUMMARY | 2025-08-16 09:47 | XMS_ITS | Encounter Summary ---
Author Organization [facility] Address [address] [place] [address] Phone Care Team Providers Care Fresh Food Manager Name Role Phone Norah Carr MD Primary Care Provider [phone] Encounter Details Date Type Department Care Team (Late st Contact Info) Description 12/21/2013 Documentation [facility] [place] [address] [place], [place] [phone] Family Medicine, Physician [address] [place], [place] 620041 Social History Tobacco Use Types Packs/Day Years [...] on filedocumented in this encounter Care Teams Fresh Food Manager Relationship Specialty Start Date End Date Norah Carr MD [address] [place] [address] PCP - General Pediatrics 08/01/19 03/30/23 documented as of this encounter
--- OUTSIDE RECORDS SUMMARY | 2025-08-16 09:47 | XMS_ITS | Encounter Summary ---
Author Organization [facility] Address [address] [place] [address] Phone Care Team Providers Care Aircraft Hydraulic Equipment Mechanic Name Role Phone Norah Carr MD Primary Care Provider [phone] Encounter Details Date Type Department Care Team (Late st Contact Info) Description 01/05/2015 Documentation [facility] [place] [address] [place], [place] 9374093 Family Medicine, Physician [address] [place] [address] Social History Tobacco Use Types Packs/Day Years [...] filedocumented in this encounter Care Teams Aircraft Hydraulic Equipment Mechanic Relationship Specialty Start Date End Date Norah Carr MD [address] [place] [address] PCP - General Pediatrics 08/01/19 03/30/23 documented as of this encounter
--- OUTSIDE RECORDS SUMMARY | 2025-08-16 09:48 | XMS_ITS | Encounter Summary ---
Author Organization [facility] Address [address] [place] [address] Phone Care Team Providers Care Blind Escort Name Role Phone Norah Carr MD Primary Care Provider [phone] Encounter Details Date Type Department Care Team (Late st Contact Info) Description 08/30/2014 Documentation [facility] [place] [address] [place], [place] 5898593 Family Medicine, Physician [address] [place] [address] Social History Tobacco Use Types Packs/Day Years [...] on filedocumented in this encounter Care Teams Blind Escort Relationship Specialty Start Date End Date Norah Carr MD [address] [place] [address] PCP - General Pediatrics 08/01/19 03/30/23 documented as of this encounter
--- OUTSIDE RECORDS SUMMARY | 2025-08-16 09:48 | XMS_ITS | Encounter Summary ---
Author Organization [facility] Address [address] [place] [address] Phone Care Team Providers Care Digital Strategy Director Name Role Phone Norah Carr MD Primary Care Provider [phone] Encounter Details Date Type Department Care Team (Late st Contact Info) Description 08/07/2014 Documentation [facility] [place] [address] [place], [place] 6029693 Family Medicine, Physician [address] [place], [place] 811861 Social History Tobacco Use Types Packs/Day Years [...] on filedocumented in this encounter Care Teams Digital Strategy Director Relationship Specialty Start Date End Date Norah Carr MD [address] [place] [address] PCP - General Pediatrics 08/01/19 03/30/23 documented as of this encounter
--- OUTSIDE RECORDS SUMMARY | 2025-08-16 09:48 | XMS_ITS | Encounter Summary ---
Author Organization [facility] Address [address] [place] [address] Phone Care Team Providers Care Lead Operator Name Role Phone Norah Carr MD Primary Care Provider [phone] Encounter Details Date Type Department Care Team (Late st Contact Info) Description 08/07/2014 [place]ation [facility] [place] [address] [place], [place] 8111193 Family Medicine, Physician [address] [place], [place] 010711 Social History Tobacco Use Types Packs/Day Years [...] on filedocumented in this encounter Care Teams Lead Operator Relationship Specialty Start Date End Date Norah Carr MD [address] [place] [address] PCP - General Pediatrics 08/01/19 03/30/23 documented as of this encounter
--- OUTSIDE RECORDS SUMMARY | 2025-08-16 09:48 | XMS_ITS | Encounter Summary ---
Author Organization [facility] Address [address] [place] [address] Phone Care Team Providers Care Physician Intensivist Name Role Phone Norah Carr MD Primary Care Provider [phone] Encounter Details Date Type Department Care Team (Late st Contact Info) Description 09/15/2014 Documentation [facility] [place] [address] [place], [place] 3049193 Family Medicine, Physician [address] [place], [place] 917951 Social History Tobacco Use Types Packs/Day Years [...] on filedocumented in this encounter Care Teams Physician Intensivist Relationship Specialty Start Date End Date Norah Carr MD [address] [place] [address] PCP - General Pediatrics 08/01/19 03/30/23 documented as of this encounter
--- OUTSIDE RECORDS SUMMARY | 2025-08-16 09:48 | XMS_ITS | Encounter Summary ---
Author Organization [facility] Address [address] [place] [address] Care Team Providers Care Manager Intranet Name Role Phone Unavailable Primary Care Provider Unavailabl e Encounter Details Date Type Department Care Team (Latest Contact Info) Description 06/23/2022 Hospital Encounter Kaushik Kurtz MD [address] [place], [place] [id number] Social History Tobacco Use Types Packs/Day Years Used Date Smoking Tobacco: Never Assessed Comments Unknown Sex and Gender Information Value Date Recorded Sex Assigned at Not on file Legal Sex Female 6:51 PM EST Gender Identity Not on file Sexual Orientation Not on file documented as of this encounter Plan of Treatment Not on file documented as of this encounter Visit Diagnoses Not on filedocumented in this encounter
--- OUTSIDE RECORDS SUMMARY | 2025-08-16 09:48 | XMS_ITS | Encounter Summary ---
Author Organization [facility] Address [address] [place] [address] Phone Care Team Providers Care Proctologist Name Role Phone Norah Carr MD Primary Care Provider [phone] Encounter Details Date Type Department Care Team (Late st Contact Info) Description 08/30/2014 Documentation [facility] [place] [address] [place], [place] 7580193 Family Medicine, Physician [address] [place] [address] Social History Tobacco Use Types Packs/Day Years [...] on filedocumented in this encounter Care Teams Proctologist Relationship Specialty Start Date End Date Norah Carr MD [address] [place] [address] PCP - General Pediatrics 08/01/19 03/30/23 documented as of this encounter
--- OUTSIDE RECORDS SUMMARY | 2025-08-16 09:48 | XMS_ITS | Encounter Summary ---
Author Organization [facility] Address [address] [place] [address] Phone Care Team Providers Care Heatset Winder Operator Name Role Phone Norah Carr MD Primary Care Provider [phone] Encounter Details Date Type Department Care Team (Late st Contact Info) Description 01/15/2011 Documentation [facility] [place] [address] [place], [place] 7365193 Family Medicine, Physician [address] [place], [place] 019641 Social History Tobacco Use Types Packs/Day Years [...] on filedocumented in this encounter Care Teams Heatset Winder Operator Relationship Specialty Start Date End Date Norah Carr MD [address] [place] [address] PCP - General Pediatrics 08/01/19 03/30/23 documented as of this encounter
--- OUTSIDE RECORDS SUMMARY | 2025-08-16 09:48 | XMS_ITS | Encounter Summary ---
Author Organization [facility] Address [address] [place] [address] Phone Care Team Providers Care Fermenting Cellars Receiver Name Role Phone Norah Carr MD Primary Care Provider [phone] Encounter Details Date Type Department Care Team (Late st Contact Info) Description 06/22/2014 Documentation [facility] [place] Family Medicine [address] [place], [place] 1862593 Family Medicine, Physician [address] [place], [place] 093351 Social History Tobacco Use Types Packs/Day Years [...] on filedocumented in this encounter Care Teams Fermenting Cellars Receiver Relationship Specialty Start Date End Date Norah Carr MD [address] [place] [address] PCP - General Pediatrics 08/01/19 03/30/23 documented as of this encounter
--- OUTSIDE RECORDS SUMMARY | 2025-08-16 09:48 | XMS_ITS | Encounter Summary ---
Author Organization [facility] Address [address] [place] [address] Phone Care Team Providers Care Appeals Coordinator Name Role Phone Norah Carr MD Primary Care Provider [phone] Encounter Details Date Type Department Care Team (Late st Contact Info) Description 04/22/2012 Documentation [facility] [place] [address] [place], [place] 6101693 Family Medicine, Physician [address] [place] [address] Social History Tobacco Use Types Packs/Day Years [...] on filedocumented in this encounter Care Teams Appeals Coordinator Relationship Specialty Start Date End Date Norah Carr MD [address] [place] [address] PCP - General Pediatrics 08/01/19 03/30/23 documented as of this encounter
--- OUTSIDE RECORDS SUMMARY | 2025-08-16 09:48 | XMS_ITS | Encounter Summary ---
Author Organization [facility] Address [address] [place] [address] Phone Care Team Providers Care Petroleum Products Sales Representative Name Role Phone Norah Carr MD Primary Care Provider [phone] Encounter Details Date Type Department Care Team (Late st Contact Info) Description 04/23/2012 Documentation [facility] [place] Family [place] [address] [place], [place] 8375293 Family Medicine, Physician [address] [place] [address] Social History Tobacco Use Types Packs/Day Years [...] on filedocumented in this encounter Care Teams Petroleum Products Sales Representative Relationship Specialty Start Date End Date Norah Carr MD [address] [place] [address] PCP - General Pediatrics 08/01/19 03/30/23 documented as of this encounter
--- OUTSIDE RECORDS SUMMARY | 2025-08-16 09:48 | XMS_ITS | Encounter Summary ---
Author Organization [facility] Address [address] [place] [address] Phone Care Team Providers Care Documentation Improvement Specialist Name Role Phone Norah Carr MD Primary Care Provider [phone] Encounter Details Date Type Department Care Team (Late st Contact Info) Description 05/10/2012 Documentation [facility] [place] Family [place] [address] [place], [place] 3341093 Family Medicine, Physician [address] [place], [place] 599031 Social History Tobacco Use Types Packs/Day Years [...] on filedocumented in this encounter Care Teams Documentation Improvement Specialist Relationship Specialty Start Date End Date Norah Carr MD [address] [place] [address] PCP - General Pediatrics 08/01/19 03/30/23 documented as of this encounter
--- OUTSIDE RECORDS SUMMARY | 2025-08-16 09:48 | XMS_ITS | Encounter Summary ---
Author Organization [facility] Address [address] [place] [address] Phone Care Team Providers Care Slicing Machine Tender Name Role Phone Norah Carr MD Primary Care Provider [phone] Encounter Details Date Type Department Care Team (Late st Contact Info) Description 03/14/2014 Documentation [facility] [place] Family Medicine [address] [place], [place] 1945093 Family Medicine, Physician [address] [place], [place] 837641 Social History Tobacco Use Types Packs/Day Years [...] on filedocumented in this encounter Care Teams Slicing Machine Tender Relationship Specialty Start Date End Date Norah Carr MD [address] [place] [address] PCP - General Pediatrics 08/01/19 03/30/23 documented as of this encounter
--- OUTSIDE RECORDS SUMMARY | 2025-08-16 09:48 | XMS_ITS | Encounter Summary ---
Author Organization [facility] Address [address] [place] [id number] Phone Care Team Providers Care [employer] Name Role Phone Norah Carr MD Primary Care Provider [phone] Encounter Details Date Type Department Care Team (Late st Contact Info) Description 08/30/2014 Documentation [facility] [place] [address] [place], [place] [id number] Family Medicine, Physician [address] [place] [address] Social History Tobacco Use Types Packs/Day Years [...] on filedocumented in this encounter Care Teams [employer] Relationship Specialty Start Date End Date Norah Carr MD [address] [place] [address] PCP - General Pediatrics 08/01/19 03/30/23 documented as of this encounter
--- OUTSIDE RECORDS SUMMARY | 2025-08-16 09:48 | XMS_ITS | Clinical Summary ---
Author Organization [facility] Address [address] [place] [address] Care Team Providers Care Plow Shaker Name Role Phone Unavailable Primary Care Provider Unavailabl e Social History Tobacco Use Types Packs/Day Years Used Date Smoking Tobacco: Never Assessed Comments Unknown Sex and Gender Information Value Date Recorded Sex Assigned at Not on file Legal Sex Female 6:51 PM EST Gender Identity Not on file Sexual Orientation Not on file Last Filed Vital Signs Vital Sign Reading Time Taken Comments Blood Pressure 92/52 06/23/2022 6:15 AM EDT Pulse 120 06/23/2022 6:15 AM EDT Temperature - - Respiratory Rate 24 06/23/2022 6:15 AM EDT Oxygen Saturation 98% 06/23/2022 6:15 AM EDT Inhaled Oxygen Concentration - - Weight - - Height - - Body Mass Index - - Plan of Treatment Health Maintenance Due Date Last Done Comments Hepatitis C Virus Screening 2000 HIV Screening 2013 HPV Vaccines (1 - 3-dose series) 12/14/2015 DTaP/Tdap/Td Vaccines (1 - Tdap) 12/14/2019 Hepatitis B Vaccines (1 of 3 - 19+ 3-dose series) 12/14/2019 COVID-19 Vaccine (2024-2 6 season) 2025 Pneumococcal Vaccine: Pediat nuvia (0-5 Years) and At-Risk Patients (6 to 49 Years) Aged Out No longer eligible b ased on patient's age to complete this topic
[2025-08-16 12:08] LABS: Resp Syncy Virus RNA Qual PCR NEGATIVE (Negative); SARS COV2 PCR INHOUSE NEGATIVE (Negative)
[2025-08-16 12:32] VITALS: O2SAT 98
[2025-08-16 12:33] VITALS: BP 124/65; PULSE 99; RESP 16; TEMP 36.7; O2SAT 98
== END 2025-08-16 12:34 | disposition home or self-care (01) ==
PROVIDERS: Registered Nurse Emergency; Emergency Provider Emergency Medicine; PCP Family Medicine
DX: B34.9 Viral infection, unspecified (principal); R05.9 Cough, unspecified; Z76.0 Encounter for issue of repeat prescription; Z79.899 Other long term (current) drug therapy
CPT/HCPCS: 71046; 87637; 99283; 99284

== ENCOUNTER → 2025-08-16 09:32 | Outpatient (BNV) | payer MEDICAID, SELFPAY | PROVIDERS: Emergency Provider Emergency Medicine; PCP Family Medicine; Visit Provider Radiology Body Imaging | DX: R05.8 Other specified cough (principal) | CPT/HCPCS: 71046 ==